=== PATIENT | male | born 1975 | race Caucasian/White ===

== ENCOUNTER 2020-04-04 08:09 | Emergency (ER) | payer MEDICAID ==
[2020-04-04 08:27] VITALS: O2SAT 100
[2020-04-04] MEDS ORDERED: DELTASONE 5 MG PO STA (08:37)
--- NOTE | 2020-04-04 08:40 | ERPHSYRPT ---
- History of Present Illness Time Seen by Provider: 04/04/20 08:30 Source: patient Exam Limitations: no limitations Patient Subjective Stated Complaint: rash Triage Nursing Assessment: pt to ED c/o rash to arms, neck, face and ears. states he left work Friday night and woke up Sat morning with rash to arms. since spread to face and neck. no swelling noted. no diff breathing or SOB. hx poison sumac and oak. no pain, itching tx with calamine lotion at home Physician History: Patient is a 44-year-old male presents to our ED with a pruritic rash to his face neck and arms. Symptoms started 3 days ago. 4 days ago patient was at work and exposed to either poison oak sumac or sm[place]a. Patient has been itching. Symptoms have been ongoing. No intraoral lesions. No difficulty breathing. No nausea or vomiting. No fevers. No concern for skin infection. Symptoms are constant. Symptoms are moderate in intensity. No specific worsening or improving factors. Patient is otherwise healthy. He voices no other complaints at this time. Timing/Duration: day(s) (3) Quality: itchy Severity: moderate Location: other (Face neck arms.) Modifying Factors: Improves With: calamine lotion (Patient applied calamine lotion with no significant improvement.) Associated Symptoms: No blisters, No change in skin texture, No difficulty breathing, No fever, No flushing, No headache, No hives, No jaundice, No malaise, No nasal congestion, No numbness, No pallor, No paresthesia, No petechiae, No sore throat, No swelling/mass/lumps, No tingling Allergies/Adverse Reactions: morphine Allergy (Verified 04/04/20 08:40) Hx Tetanus, Diphtheria Vaccination/Date Given: Yes Hx Influenza Vaccination/Date Given: Yes Hx Pneumococcal Vaccination/Date Given: No Immunizations Up to Date: Yes Travel Risk - International Travel Have you traveled outside of the country in past 3 weeks: No - Coronavirus Screening Are you exhibiting any of the following symptoms?: No Close contact with a COVID-19 positive Pt in past 14-21 Days: No - Review of Systems Constitutional: No Symptoms, No Fever, No Chills Eyes: No Symptoms Ears, Nose, & Throat: No Symptoms Respiratory: No Cough, No Dyspnea Cardiac: No Symptoms, No Chest Pain, No Edema, No Syncope Abdominal/Gastrointestinal: No Symptoms, No Abdominal Pain, No Nausea, No Vomiting, No Diarrhea Genitourinary Symptoms: No Symptoms, No Dysuria Musculoskeletal: No Symptoms, No Back Pain, No Neck Pain Skin: No Rash Neurological: No Symptoms, No Dizziness, No Focal Weakness, No Sensory Changes Psychological: No Symptoms Endocrine: No Symptoms Hematologic/Lymphatic: No Symptoms Immunological/Allergic: No Symptoms All Other Systems: Reviewed and Negative - Past Medical History Pertinent Past Medical History: No - Past Surgical History Past Surgical History: Yes Other Surgical History: unknown abd sx as child, "maybe hernia" - Social History Smoking Status: Current every day smoker How long have you smoked: years Exposure to second hand smoke: Yes Drug Use: none Patient Lives Alone: Yes - Nursing Vital Signs Nursing Vital Signs: Initial Vital Signs O2 Sat by Pulse Oximetry 100 04/04/20 08:14 Pain Scale Pain Intensity 0 - Physical Exam General Appearance: no apparent distress, alert Eye Exam: PERRL/EOMI, eyes nml inspection Ears, Nose, Throat Exam: normal ENT inspection, pharynx normal, moist mucous membranes Neck Exam: normal inspection, non-tender, supple, full range of motion Respiratory Exam: normal breath sounds, lungs clear, No respiratory distress Cardiovascular Exam: regular rate/rhythm, normal heart sounds Gastrointestinal/Abdomen Exam: soft, mass, No tenderness Back Exam: normal inspection, normal range of motion, No CVA tenderness, No vertebral tenderness Extremity Exam: normal inspection, normal range of motion, other (Patient has calamine lotion on upper extremities. Soft tissue intact. No cellulitis. No lymphangitis. Fine macular pruritic rash at areas of involvement on arms neck and face.) Neurologic Exam: alert, oriented x 3, cooperative, normal mood/affect, sensation nml, No motor deficits Skin Exam: normal color, warm, dry Lymphatic Exam: No adenopathy SpO2 Interpretation: normal SpO2: 100 O2 Delivery: Room Air - Course Nursing assessment & vital signs reviewed: Yes Ordered Tests: Medication Summary Discontinued Medications Generic Name Dose Route Start Last Admin Trade Name Freq PRN Reason Stop Dose Admin Prednisone 50 mg 04/04/20 08:37 Deltasone 5 Mg PO 04/04/20 08:38 DAILY STA - Progress Progress: improved Progress Note: 04/04/20 08:47 Patient reassessed. He feels well. Prednisone administered. Prescription for the same forwarded to patient's pharmacy. Patient agrees to follow-up with his primary care doctor within 48 hours for reevaluation. Patient advised [id number] Benadryl as needed as directed for pruritus. 04/04/20 08:47 Counseled pt/family regarding: diagnosis, need for follow-up - Departure Departure Disposition: Home Clinical Impression: Pruritic rash, Contact dermatitis Condition: Stable Critical Care Time: No Referrals: NELLY JAIME, [ACTIVE STAFF] - Instructions: Poison [place], Poison [place], Poison Sumac (DC) Additional Instructions: Discharge/Care Plan VERNA CORONA was seen on 04/04/20 in the Emergency Room. The patient was co unseled regarding Diagnosis,Lab results, Imaging studies, need for follow up and when to return to the Emergency Room. Prescriptions given: Discharge Note I have spoken with the patient and/or caregivers. I have explained the patient's condition, diagnosis and treatment plan based on the information available to me at this time. I have answered the patient's and/or caregiver's questions and addressed any concerns. The patient and/or caregivers have as good understanding of the patient's diagnosis, condition and treatment plan as can be expected at this point. The vital signs have been stable. The patient's condition is stable and appropriate for discharge from the emergency department. The patient will pursue further outpatient evaluation with the primary care physician or other designated or consulting physician as outlined in the discharge instructions. The patient and/or caregivers are agreeable to this plan of care and follow-up instructions have been explained in detail. The patient and/or caregivers have received these instruction. The patient/and or caregivers are aware that any significant change in condition or worsening of symptoms should prompt an immediate return to this or the closest emergency department or call 911. Prescriptions: Prednisone 10 mg [Deltasone 10 mg] 40 mg PO DAILY 3 Days #12 tablet
[2020-04-04] MEDS ORDERED: DELTASONE 20 MG ONE (08:43)
[2020-04-04 08:53] VITALS: BP 144/90; PULSE 45
[2020-04-04] MEDS ORDERED: DELTASONE 20 MG PO SCH (10:00)
== END 2020-04-04 09:05 | disposition home or self-care (01) ==
LOC: ED 08:09
DX: R21 Rash and other nonspecific skin eruption (principal); L25.9 Unspecified contact dermatitis, unspecified cause
CPT/HCPCS: 99283; A9270-GY

== ENCOUNTER 2022-12-18 12:41 | Emergency (ER) | payer OTHER ==
[2022-12-18 13:20] LABS: Appearance Clear (Clear); Bacteria None Seen /HPF (None Seen); Bilirubin Moderate (Negative); Blood Negative (Negative); Epithelial Cells None Seen /HPF (None Seen); Glucose, Urine Negative (Negative); Ketones Trace (Negative); Leukocyte Esterase Trace (Negative); Nitrite Negative (Negative); Ph 5.5 (4.6-8.0); Protein,Urine Dip Trace (Negative); RBC 0-2 /HPF (0-5); Specific Gravity >=1.030 (1.005-1.030); WBC 0-2 /HPF (0-5)
[2022-12-18 13:21] LABS: ADD URINE CULTURE? NO (NO)
[2022-12-18 13:23] LABS: Absolute Neutrophil Ct (ANC) 8.66 x10^3/uL (1.4-6.9); BASOPHIL % 0.5 % (0.0-0.4); Basophil (Absolute #) 0.05 x10^3/uL (0-0.4); Eosinophil % 0.2 % (0.00-5.0); Eosinophil (Absolute #) 0.02 x10^3/uL (0-0.5); Hematocrit 41.6 % (42-50); Hemoglobin 13.7 g/dL (12.5-18.0); IMMATURE GRAN # 0.04 x10^3u/L (0.00-0.03); IMMATURE GRAN % 0.4 % (0.00-0.4); Lymphocyte (Absolute #) 1.34 x10^3/uL (1.0-4.6); Lymphocytes % 12.3 % (24.0-44.0); Mean Cell Volume 92.2 fL (78-100); Mean Corpuscular Hemoglobin 30.4 pg (26-32); Mean Corpuscular Hgb Concent. 32.9 g/dL (32-36); Mean Platelet Volume 11.1 fL (7.5-11.0); Monocyte (Absolute #) 0.76 x10^3/uL (0.0-1.3); Neutrophil % 79.6 % (36.0-66.0); Platelet Count 188 x10^3/uL (150-450); Red Blood Count 4.51 x10^6/uL (4.1-5.6); Red Cell Distribution Width 12.6 % (11.5-14.0); White Blood Count 10.9 x10^3/uL (4.0-10.5)
[2022-12-18 13:32] LABS: Amphetamine,Urine NEGATIVE (NEGATIVE); Barbiturate,Urine NEGATIVE (NEGATIVE); Benzodiazepine,Urine NEGATIVE (NEGATIVE); Cocaine,Urine NEGATIVE (NEGATIVE); Methadone,Urine NEGATIVE (NEGATIVE); Opiate,Urine NEGATIVE (NEGATIVE); PCP,Urine NEGATIVE (NEGATIVE); THC,Urine POSITIVE (NEGATIVE)
[2022-12-18 13:38] LABS: ACETAMINOPHEN < 10 ug/ml (10-30); ALBUMIN 4.2 g/dL (3.5-5.0); ALKALINE PHOSPHATASE 50 U/L (38-126); ANION GAP 14.4 MEQ/L (5-15); BLOOD UREA NITROGEN 14 mg/dL (9-20); CHLORIDE 102 mmol/L (98-107); Calcium 8.9 mg/dL (8.4-10.2); Carbon Dioxide 22 mmol/L (22-30); Creatinine 1 0.86 mg/dL (0.66-1.25); EST GLOMERULAR FILTRATION RATE > 60.0 ML/MIN; ETHYL ALCOHOL < 10 mg/dL (0-10); Glucose 140 mg/dL (74-106); Potassium 3.7 mmol/L (3.5-5.1); SALICYLATE < 1.0 mg/dL (2-20); SGOT/AST 52 U/L (17-59); SGPT/ALT 33 U/L (0-50); SODIUM 135 mmol/L (137-145); Total Protein 7.3 g/dL (6.3-8.2)
[2022-12-18 13:58] LABS: INFLUENZA A NEGATIVE (NEGATIVE); INFLUENZA B NEGATIVE (NEGATIVE); RESPIRATORY SYNCTIAL VIRUS NEGATIVE (NEGATIVE); SARS-CoV-2 Xpert Express NEGATIVE (NEGATIVE)
--- NOTE | 2022-12-18 14:01 | ERPHSYRPT ---
- History of Present Illness Source: patient, other (Police) Exam Limitations: no limitations Patient Subjective Stated Complaint: Behavioral problems Triage Nursing Assessment: Patient ambulated back to ED handcuffed in custody of police. Patient's skin pink, warm and dry. Patient A+O X 3. Officer Yeny states patient c Patient states he is suicidal and states he would over dose on drugs. Patient states he has been thinking about his life and background which makes him sad. Patient currently living in [facility] on a cousins property. Patient denies pain or discomfort. Physician History: 47 yo WM brought into ER by police w suicidal ideations. Pt has an KAROLINA. He states that he is depressed/suicidal and wants to OD. Pt denies any ingestion at this time and will not say why he is depressed. He lives in a trailer by himself and is unemployed. Smokes less than 1ppd and occ drinks alcohol. Denies current drug use. Timing/Duration: today Severity of Symptoms-Max: moderate Severity of Symptoms-Current: moderate Suicidal thoughts: specific plan Associated Symptoms: depressed Allergies/Adverse Reactions: morphine Allergy (Verified 12/18/22 12:44) Home Medications: No Reportable Medications [No Reported Medications] 12/18/22 [History] Hx Tetanus, Diphtheria Vaccination/Date Given: Yes Hx Influenza Vaccination/Date Given: No Hx Pneumococcal Vaccination/Date Given: No Immunizations Up to Date: Yes Travel Risk - International Travel Have you traveled outside of the country in past 3 weeks: No - Coronavirus Screening Are you exhibiting any of the following symptoms?: No Close contact with a COVID-19 positive Pt in past 14-21 Days: No - Vaccine Status Have you recieved a Covid-19 vaccination: No - Past Medical History Pertinent Past Medical History: Yes Neurological History: No Pertinent History ENT History: No Pertinent History Cardiac History: No Pertinent History Respiratory History: No Pertinent History Endocrine Medical History: No Pertinent History Musculoskeletal History: No Pertinent History GI Medical History: No Pertinent History History: No Pertinent History Psycho-Social History: Anxiety, Depression Male Reproductive Disorders: No Pertinent History - Past Surgical History Past Surgical History: Yes Other Surgical History: unknown abd sx as child, "maybe hernia" - Social History Smoking Status: Current every day smoker How long have you smoked: years Exposure to second hand smoke: Yes Drug Use: marijuana Patient Lives Alone: Yes - Review of Systems Constitutional: No Symptoms Eyes: No Symptoms Ears, Nose, & Throat: No Symptoms Respiratory: No Symptoms Cardiac: No Symptoms Abdominal/Gastrointestinal: No Symptoms Genitourinary Symptoms: No Symptoms Musculoskeletal: No Symptoms Skin: No Symptoms Neurological: No Symptoms Endocrine: No Symptoms Hematologic/Lymphatic: No Symptoms Immunological/Allergic: No Symptoms - Nursing Vital Signs Nursing Vital Signs: Initial Vital Signs Temperature 98.9 F 12/18/22 12:45 Pulse Rate 99 H 12/18/22 12:45 Respiratory Rate 18 12/18/22 12:45 Blood Pressure 137/92 12/18/22 12:45 O2 Sat by Pulse Oximetry 96 12/18/22 12:45 Pain Scale Pain Intensity 0 Mildly hypertensive - Physical Exam General Appearance: no apparent distress Eyes, Ears, Nose, Throat Exam: normal ENT inspection, TMs normal, pharynx normal, moist mucous membranes Neck Exam: normal inspection, non-tender, supple, full range of motion, No Brudzinski, No Kernig's, No meningismus, No carotid bruit Respiratory Exam: normal breath sounds, lungs clear, airway intact, No chest tenderness, No respiratory distress Cardiovascular Exam: regular rate/rhythm, normal heart sounds, normal peripheral pulses, capillary refill <2 sec, No murmur Gastrointestinal/Abdominal Exam: soft, normal bowel sounds, No tenderness Extremities Exam: normal inspection, normal range of motion, No evidence of injury Peripheral Pulses: carotid (R): 2+, carotid (L): 2+ Current Suicidality: has suicide plan Neurological Exam: 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, 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 nml as tested, oriented x 3, depressed affect Appearance: disheveled Behavior/Eye Contact/Speech: alert & cooperative Thoughts/Hallucinations: normal thought pattern Skin Exam: normal color, warm, dry SpO2 Interpretation: normal SpO2: 96 O2 Delivery: Room Air - Course EKG Interpreted by Me: RATE (NSR/Rate 94/Normal QT-QTc/Peaked T waves/LVH/No acute St segment changes) Ordered Tests: Active Orders 24 hr Category Date Time Status EKG-ER Only STAT Care 12/18/22 13:07 Completed Tele-Health Consult ROUTINE Cons 12/18/22 16:59 Completed ACETAMINOPHEN Stat Lab 12/18/22 13:15 Completed CBC W DIFF Stat Lab 12/18/22 13:15 Completed CMP Stat Lab 12/18/22 13:15 Completed ETHYL ALCOHOL Stat Lab 12/18/22 13:15 Completed SALICYLATE Stat Lab 12/18/22 13:15 Completed UA W/RFX UR CULTURE Stat Lab 12/18/22 13:11 Completed Urine Triage Profile Stat Lab 12/18/22 13:11 Completed Lab/Rad Data: Laboratory Result Diagrams 12/18/22 13:15 12/18/22 13:15 Laboratory Results 12/18/22 12/18/22 12/18/22 Range/Units 13:15 13:15 13:15 WBC 10.9 H (4.0-10.5) x10^3/uL RBC 4.51 (4.1-5.6) x10^6/uL Hgb 13.7 (12.5-18.0) g/dL Hct 41.6 L (42-50) % MCV 92.2 (78-100) fL MCH 30.4 (26-32) pg MCHC 32.9 (32-36) g/dL RDW 12.6 (11.5-14.0) % Plt Count 188 (150-450) x10^3/uL MPV 11.1 H (7.5-11.0) fL Gran % 79.6 H (36.0-66.0) % Immature Gran % (Auto) 0.4 (0.00-0.4) % Nucleat RBC Rel Count 0.0 (0.00-0.1) % Eos # (Auto) 0.02 (0-0.5) x10^3/uL Immature Gran # (Auto) 0.04 H (0.00-0.03) x10^3u/L Absolute Lymphs (auto) 1.34 (1.0-4.6) x10^3/uL Absolute Monos (auto) 0.76 (0.0-1.3) x10^3/uL Absolute Nucleated RBC 0.00 (0.00-0.01) x10^3u/L Lymphocytes % 12.3 L (24.0-44.0) % Monocytes % 7.0 (0.0-12.0) % Eosinophils % 0.2 (0.00-5.0) % Basophils % 0.5 (0.0-0.4) % Absolute Granulocytes 8.66 H (1.4-6.9) x10^3/uL Basophils # 0.05 (0-0.4) x10^3/uL Sodium 135 L (137-145) mmol/L Potassium 3.7 (3.5-5.1) mmol/L Chloride 102 (98-107) mmol/L Carbon Dioxide 22 (22-30) mmol/L Anion Gap 14.4 (5-15) MEQ/L BUN 14 (9-20) mg/dL Creatinine 0.86 (0.66-1.25) mg/dL Estimated GFR > 60.0 ML/MIN Glucose 140 H (74-106) mg/dL Calcium 8.9 (8.4-10.2) mg/dL Total Bilirubin 1.10 (0.2-1.3) mg/dL AST 52 (17-59) U/L ALT 33 (0-50) U/L Alkaline Phosphatase 50 (38-126) U/L Serum Total Protein 7.3 (6.3-8.2) g/dL Albumin 4.2 (3.5-5.0) g/dL Urine Color (Yellow) Urine Appearance (Clear) Urine pH (4.6-8.0) Ur Specific [place] (1.005-1.030) Urine Protein (Negative) Urine Glucose (UA) (Negative) mg/dL Urine Ketones (Negative) Urine Blood (Negative) Urine Nitrite (Negative) Urine Bilirubin (Negative) Urine Urobilinogen (0.2) mg/dL Ur Leukocyte Esterase (Negative) U Hyaline Cast (Auto) (0-2) /LPF Urine Microscopic RBC (0-5) /HPF Urine Microscopic WBC (0-5) /HPF Ur Epithelial Cells (None Seen) /HPF Urine Bacteria (None Seen) /HPF Urine Culture Reflexed (NO) Salicylates < 1.0 L (2-20) mg/dL Urine Opiates Level (NEGATIVE) Ur Methadone (NEGATIVE) Acetaminophen < 10 L (10-30) ug/ml Urine Barbiturates (NEGATIVE) Ur Phencyclidine (PCP) (NEGATIVE) Urine Amphetamine (NEGATIVE) U Benzodiazepine Level (NEGATIVE) Urine Cocaine (NEGATIVE) Urine Marijuana (THC) (NEGATIVE) Ethyl Alcohol < 10 (0-10) mg/dL Influenza Type A Ag NEGATIVE (NEGATIVE) Influenza Type B Ag NEGATIVE (NEGATIVE) RSV (PCR) NEGATIVE (NEGATIVE) SARS-CoV-2 (PCR) NEGATIVE (NEGATIVE) 12/18/22 12/18/22 Range/Units 13:11 13:11 WBC (4.0-10.5) x10^3/uL RBC (4.1-5.6) x10^6/uL Hgb (12.5-18.0) g/dL Hct (42-50) % MCV (78-100) fL MCH (26-32) pg MCHC (32-36) g/dL RDW (11.5-14.0) % Plt Count (150-450) x10^3/uL MPV (7.5-11.0) fL Gran % (36.0-66.0) % Immature Gran % (Auto) (0.00-0.4) % Nucleat RBC Rel Count (0.00-0.1) % Eos # (Auto) (0-0.5) x10^3/uL Immature Gran # (Auto) (0.00-0.03) x10^3u/L Absolute Lymphs (auto) (1.0-4.6) x10^3/uL Absolute Monos (auto) (0.0-1.3) x10^3/uL Absolute Nucleated RBC (0.00-0.01) x10^3u/L Lymphocytes % (24.0-44.0) % Monocytes % (0.0-12.0) % Eosinophils % (0.00-5.0) % Basophils % (0.0-0.4) % Absolute Granulocytes (1.4-6.9) x10^3/uL Basophils # (0-0.4) x10^3/uL Sodium (137-145) mmol/L Potassium (3.5-5.1) mmol/L Chloride (98-107) mmol/L Carbon Dioxide (22-30) mmol/L Anion Gap (5-15) MEQ/L BUN (9-20) mg/dL Creatinine (0.66-1.25) mg/dL Estimated GFR ML/MIN Glucose (74-106) mg/dL Calcium (8.4-10.2) mg/dL Total Bilirubin (0.2-1.3) mg/dL AST (17-59) U/L ALT (0-50) U/L Alkaline Phosphatase (38-126) U/L Serum Total Protein (6.3-8.2) g/dL Albumin (3.5-5.0) g/dL Urine Color Dark Yellow (Yellow) Urine Appearance Clear (Clear) Urine pH 5.5 (4.6-8.0) Ur Specific [place] >=1.030 A (1.005-1.030) Urine Protein Trace A (Negative) Urine Glucose (UA) Negative (Negative) mg/dL Urine Ketones Trace A (Negative) Urine Blood Negative (Negative) Urine Nitrite Negative (Negative) Urine Bilirubin Moderate A (Negative) Urine Urobilinogen 1.0 A (0.2) mg/dL Ur Leukocyte Esterase Trace A (Negative) U Hyaline Cast (Auto) 3-5 A (0-2) /LPF Urine Microscopic RBC 0-2 (0-5) /HPF Urine Microscopic WBC 0-2 (0-5) /HPF Ur Epithelial Cells None Seen (None Seen) /HPF Urine Bacteria None Seen (None Seen) /HPF Urine Culture Reflexed NO (NO) Salicylates (2-20) mg/dL Urine Opiates Level NEGATIVE (NEGATIVE) Ur Methadone NEGATIVE (NEGATIVE) Acetaminophen (10-30) ug/ml Urine Barbiturates NEGATIVE (NEGATIVE) Ur Phencyclidine (PCP) NEGATIVE (NEGATIVE) Urine Amphetamine NEGATIVE (NEGATIVE) U Benzodiazepine Level NEGATIVE (NEGATIVE) Urine Cocaine NEGATIVE (NEGATIVE) Urine Marijuana (THC) POSITIVE (NEGATIVE) Ethyl Alcohol (0-10) mg/dL Influenza Type A Ag (NEGATIVE) Influenza Type B Ag (NEGATIVE) RSV (PCR) (NEGATIVE) SARS-CoV-2 (PCR) (NEGATIVE) - Progress Progress Note: 12/19/22 06:35 Nursing note and vital signs reviewed Additional history per police [facility] consulted on pt and agreed inpt treatment was appropriate KAROLINA papers signed by records management clerk, as pt is suicidal After lengthy placement process, pt transferred to [facility] Pt in stable condition during entire stay 12/19/22 06:39 Counseled pt/family regarding: lab results, diagnosis Medical Desision Making - Discussion of managment Care discussed with:: specialist Reviewed:: Test results Agreed on:: Treatment plan - Social Determinants of Health Pt's dx & treatment plan are significantly limited by SDOH: Unemployed - Risk of complications The pt has a high risk of morbidity or mortality based on: Drug therapy requiring intensive monitoring for toxicity - Departure Departure Disposition: Transfer Clinical Impression: Suicidal ideation Condition: Stable Critical Care Time: No Referrals: DOCTOR,NO FAMILY [Primary Care Provider] - Follow up/PCP as directed
[2022-12-19 02:32] VITALS: BP 103/64; PULSE 54
[2022-12-19 06:40] VITALS: O2SAT 96
== END 2022-12-19 01:09 ==
LOC: ED 12:41
DX: R45.851 Suicidal ideations (principal); Z20.828 Contact with and (suspected) exposure to other viral communicable diseases; Z72.0 Tobacco use
CPT/HCPCS: 0241U; 36415; 80053; 80143; 80179; 80307; 81001; 82077; 85025; 93005; 99284

== ENCOUNTER 2023-07-09 10:13 | Observation (INO) | payer OTHER ==
--- NOTE | 2023-07-09 10:16 | ERPHSYRPT ---
- History of Present Illness Time Seen by Provider: 07/09/23 10:16 Historian: patient Exam Limitations: no limitations Physician History: This is a thin 48-year-old white male patient who smokes daily and occasionally consumes alcohol and admits to consuming methamphetamines 3 days ago and presents with 2-month history of epigastric abdominal pain. He also states he h as not had a bowel movement since . Patient lives alone in a trailer. He has no family members with him. Patient stated that he walked this morning from [facility] to our facility. Patient denies being short of breath. He denies vomiting. Patient's room air oxygenation saturation level is 98%. Patient's heart rate on the monitor is 170 bpm. The twelve-lead EKG shows supraventricular tachycardia. Patient states he does not feel palpitations or rapid heart rate. Patient denies any prior intra-abdominal surgeries. Patient is allergic to morphine. Patient does not take any medications chronically. Patient has no family doctor. Patient's systolic blood pressure is in the 130s and his diastolic blood pressure is 89. Activities at Onset: other (Walking) Quality: aching Abdominal Pain Onset Location: epigastric Pain Radiation: no radiation Severity of Pain-Max: mild (To moderate) Severity of Pain-Current: mild (Moderate) Modifying Factors: Improves With: walking, other (Constipation) Associated Symptoms: other (Constipation) Previous symptoms: no prior history Allergies/Adverse Reactions: morphine Allergy (Verified 07/09/23 10:21) Home Medications: Sertraline HCl 100 mg PO DAILY 07/09/23 [History] Hx Tetanus, Diphtheria Vaccination/Date Given: Yes Hx Influenza Vaccination/Date Given: No Hx Pneumococcal Vaccination/Date Given: No Travel Risk - International Travel Have you traveled outside of the country in past 3 weeks: No - Coronavirus Screening Are you exhibiting any of the following symptoms?: No Close contact with a COVID-19 positive Pt in past 14-21 Days: No - Vaccine Status Have you recieved a Covid-19 vaccination: No - Review of Systems Constitutional: No Symptoms Eyes: No Symptoms Ears, Nose, & Throat: No Symptoms Respiratory: No Symptoms Cardiac: No Symptoms Abdominal/Gastrointestinal: Abdominal Pain (Epigastrium), Constipation Genitourinary Symptoms: No Symptoms Musculoskeletal: No Symptoms Skin: No Symptoms Neurological: No Symptoms Psychological: No Symptoms Endocrine: No Symptoms - Past Medical History Pertinent Past Medical History: Yes Neurological History: No Pertinent History ENT History: No Pertinent History Cardiac History: No Pertinent History Respiratory History: No Pertinent History Endocrine Medical History: No Pertinent History Musculoskeletal History: No Pertinent History GI Medical History: No Pertinent History History: No Pertinent History Psycho-Social History: Anxiety, Depression Male Reproductive Disorders: No Pertinent History - Past Surgical History Past Surgical History: Yes Other Surgical History: unknown abd sx as child, "maybe hernia" - Social History Smoking Status: Current every day smoker How long have you smoked: years Exposure to second hand smoke: Yes Drug Use: marijuana Patient Lives Alone: Yes - Nursing Vital Signs Nursing Vital Signs: Initial Vital Signs Temperature 97.3 F 07/09/23 10:24 Pulse Rate 168 H 07/09/23 10:24 Respiratory Rate 22 07/09/23 10:24 Blood Pressure 145/101 07/09/23 10:24 O2 Sat by Pulse Oximetry 99 07/09/23 10:24 Pain Scale Pain Intensity 8 - Physical Exam General Appearance: no apparent distress, alert, thin Eye Exam: PERRL/EOMI, eyes nml inspection Ears, Nose, Throat Exam: normal ENT inspection, moist mucous membranes Neck Exam: normal inspection, non-tender, supple, full range of motion Respiratory Exam: normal breath sounds, lungs clear, airway intact, No chest tenderness, No respiratory distress Cardiovascular Exam: tachycardia Gastrointestinal/Abdomen Exam: soft, normal bowel sounds, tenderness (In the epigastrium), guarding (Epigastrium), No rebound Rectal Exam: not done Back Exam: normal inspection, normal range of motion, No CVA tenderness, No vertebral tenderness Extremity Exam: normal inspection, normal range of motion, pelvis stable Neurologic Exam: alert, oriented x 3, cooperative, 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 No acute ischemic changes on today's twelve-lead EKG.) Ordered Tests: Active Orders 24 hr Category Date Time Status Clean Catch Urine Specimen STAT Care 07/09/23 10:52 Active EKG-ER Only STAT Care 07/09/23 10:52 Active ABDOMEN AND PELVIS W/0 CONTRAS [CT] Stat Exams 07/09/23 10:57 Completed CHEST WITH CONTRAST [CT] Stat Exams 07/09/23 11:26 Completed CBC W DIFF Stat Lab 07/09/23 10:40 Completed CMP Stat Lab 07/09/23 10:40 Completed D-DIMER QUANTITATIVE Stat Lab 07/09/23 10:40 Completed ETHYL ALCOHOL Stat Lab 07/09/23 10:40 Completed MAGNESIUM Stat Lab 07/09/23 10:40 Completed NT PRO BNPII Stat Lab 07/09/23 10:40 Completed TROPONIN Q4H Lab 07/09/23 10:40 Completed TROPONIN Q4H Lab 07/09/23 15:00 Ordered TROPONIN Q4H Lab 07/09/23 19:00 Ordered UA W/RFX UR CULTURE Stat Lab 07/09/23 10:59 Completed Urine Triage Profile Stat Lab 07/09/23 10:58 Completed Transfer Order Routine Transfer 07/09/23 Ordered Medication Summary Discontinued Medications Generic Name Dose Route Start Last Admin Trade Name Freq PRN Reason Stop Dose Admin Diltiazem HCl Confirm 07/09/23 10:37 Diltiazem Hcl Iv 5 Mg/Ml Vial Administered 07/09/23 10:38 Dose 50 mg IV .STK-MED ONE Diltiazem HCl 15 mg 07/09/23 10:43 07/09/23 10:45 Diltiazem Hcl Iv 5 Mg/Ml Vial IV 07/09/23 10:44 15 mg STAT ONE Administration Diltiazem HCl 10 mg 07/09/23 10:47 07/09/23 10:48 Diltiazem Hcl Iv 5 Mg/Ml Vial IV 07/09/23 10:48 10 mg STAT ONE Administration Sodium Chloride Confirm 07/09/23 10:38 Sodium Chloride 0.9% 1000 Ml Administered 07/09/23 10:39 Dose 1,000 mls @ ud .ROUTE .STK-MED ONE Sodium Chloride 1,000 mls @ 999 mls/hr 07/09/23 10:44 07/09/23 11:52 Sodium Chloride 0.9% 1000 Ml IV 07/09/23 11:44 Infused .Q1H1M STA Infusion Sodium Chloride 1,000 mls @ 999 mls/hr 07/09/23 12:06 07/09/23 13:25 Sodium Chloride 0.9% 1000 Ml IV 07/09/23 13:06 Infused .Q1H1M STA Infusion Sodium Chloride Confirm 07/09/23 12:23 Sodium Chloride 0.9% 1000 Ml Administered 07/09/23 12:24 Dose 1,000 mls @ ud .ROUTE .STK-MED ONE Lorazepam 0.5 mg 07/09/23 10:56 07/09/23 11:16 Lorazepam 2 Mg/1 Ml 2 Mg Vial IV 07/09/23 10:57 0.5 mg STAT ONE Administration Lorazepam Confirm 07/09/23 11:12 Lorazepam 2 Mg/1 Ml 2 Mg Vial Administered 07/09/23 11:13 Dose 2 mg .ROUTE .STK-MED ONE Lab/Rad Data: Laboratory Result Diagrams 07/09/23 10:40 07/09/23 10:40 Laboratory Results 07/09/23 07/09/23 07/09/23 Range/Units 10:59 10:58 10:40 WBC (4.0-10.5) x10^3/uL RBC (4.1-5.6) x10^6/uL Hgb (12.5-18.0) g/dL Hct (42-50) % MCV (78-100) fL MCH (26-32) pg MCHC (32-36) g/dL RDW (11.5-14.0) % Plt Count (150-450) x10^3/uL MPV (7.5-11.0) fL Gran % (36.0-66.0) % Immature Gran % (Auto) (0.00-0.4) % Nucleat RBC Rel Count (0.00-0.1) % Eos # (Auto) (0-0.5) x10^3/uL Immature Gran # (Auto) (0.00-0.03) x10^3u/L Absolute Lymphs (auto) (1.0-4.6) x10^3/uL Absolute Monos (auto) (0.0-1.3) x10^3/uL Absolute Nucleated RBC (0.00-0.01) x10^3u/L Lymphocytes % (24.0-44.0) % Monocytes % (0.0-12.0) % Eosinophils % (0.00-5.0) % Basophils % (0.0-0.4) % Absolute Granulocytes (1.4-6.9) x10^3/uL Basophils # (0-0.4) x10^3/uL D-Dimer (0.0-0.50) mg/L Sodium (137-145) mmol/L Potassium (3.5-5.1) mmol/L Chloride (98-107) mmol/L Carbon Dioxide (22-30) mmol/L Anion Gap (5-15) MEQ/L BUN (9-20) mg/dL Creatinine (0.66-1.25) mg/dL Estimated GFR ML/MIN Glucose (74-106) mg/dL Calcium (8.4-10.2) mg/dL Magnesium (1.6-2.3) mg/dL Total Bilirubin (0.2-1.3) mg/dL AST (17-59) U/L ALT (0-50) U/L Alkaline Phosphatase (38-126) U/L Troponin I < 0.012 (0.000-0.034) ng/mL NT-Pro-B Natriuret Pep (<300) pg/mL Serum Total Protein (6.3-8.2) g/dL Albumin (3.5-5.0) g/dL Urine Color Dark Yellow (Yellow) Urine Appearance Clear (Clear) Urine pH 6.0 (4.6-8.0) Ur Specific [place] 1.015 (1.005-1.030) Urine Protein 30 (Negative) Urine Glucose (UA) Negative (Negative) mg/dL Urine Ketones Trace A (Negative) Urine Blood Negative (Negative) Urine Nitrite Negative (Negative) Urine Bilirubin Negative (Negative) Urine Urobilinogen 1.0 A (0.2) mg/dL Ur Leukocyte Esterase Negative (Negative) U Hyaline Cast (Auto) 0-2 (0-2) /LPF Urine Microscopic RBC 0-2 (0-5) /HPF Urine Microscopic WBC 3-5 (0-5) /HPF Ur Epithelial Cells Few (None Seen) /HPF Urine Bacteria None Seen (None Seen) /HPF Urine Culture Reflexed NO (NO) Urine Opiates Level NEGATIVE (NEGATIVE) Ur Methadone NEGATIVE (NEGATIVE) Urine Barbiturates NEGATIVE (NEGATIVE) Ur Phencyclidine (PCP) NEGATIVE (NEGATIVE) Urine Amphetamine POSITIVE A (NEGATIVE) U Benzodiazepine Level NEGATIVE (NEGATIVE) Urine Cocaine NEGATIVE (NEGATIVE) Urine Marijuana (THC) POSITIVE A (NEGATIVE) Ethyl Alcohol (0-10) mg/dL 07/09/23 07/09/23 07/09/23 Range/Units 10:40 10:40 10:40 WBC 20.8 H (4.0-10.5) x10^3/uL RBC 4.68 (4.1-5.6) x10^6/uL Hgb 14.4 (12.5-18.0) g/dL Hct 42.7 (42-50) % MCV 91.2 (78-100) fL MCH 30.8 (26-32) pg MCHC 33.7 (32-36) g/dL RDW 12.4 (11.5-14.0) % Plt Count 339 (150-450) x10^3/uL MPV 11.7 H (7.5-11.0) fL Gran % 83.7 H (36.0-66.0) % Immature Gran % (Auto) 0.6 H (0.00-0.4) % Nucleat RBC Rel Count 0.0 (0.00-0.1) % Eos # (Auto) 0.02 (0-0.5) x10^3/uL Immature Gran # (Auto) 0.13 H (0.00-0.03) x10^3u/L Absolute Lymphs (auto) 1.61 (1.0-4.6) x10^3/uL Absolute Monos (auto) 1.50 H (0.0-1.3) x10^3/uL Absolute Nucleated RBC 0.00 (0.00-0.01) x10^3u/L Lymphocytes % 7.8 L (24.0-44.0) % Monocytes % 7.2 (0.0-12.0) % Eosinophils % 0.1 (0.00-5.0) % Basophils % 0.6 (0.0-0.4) % Absolute Granulocytes 17.37 H (1.4-6.9) x10^3/uL Basophils # 0.12 (0-0.4) x10^3/uL D-Dimer 0.94 H* (0.0-0.50) mg/L Sodium 135 L (137-145) mmol/L Potassium 4.4 (3.5-5.1) mmol/L Chloride 100 (98-107) mmol/L Carbon Dioxide 18 L (22-30) mmol/L Anion Gap 21.4 H (5-15) MEQ/L BUN 13 (9-20) mg/dL Creatinine 1.35 H (0.66-1.25) mg/dL Estimated GFR 64.0 ML/MIN Glucose 72 L (74-106) mg/dL Calcium 9.8 (8.4-10.2) mg/dL Magnesium 1.7 (1.6-2.3) mg/dL Total Bilirubin 1.20 (0.2-1.3) mg/dL AST 38 (17-59) U/L ALT 30 (0-50) U/L Alkaline Phosphatase 71 (38-126) U/L Troponin I (0.000-0.034) ng/mL NT-Pro-B Natriuret Pep 201 (<300) pg/mL Serum Total Protein 7.6 (6.3-8.2) g/dL Albumin 4.6 (3.5-5.0) g/dL Urine Color (Yellow) Urine Appearance (Clear) Urine pH (4.6-8.0) Ur Specific [place] (1.005-1.030) Urine Protein (Negative) Urine Glucose (UA) (Negative) mg/dL Urine Ketones (Negative) Urine Blood (Negative) Urine Nitrite (Negative) Urine Bilirubin (Negative) Urine Urobilinogen (0.2) mg/dL Ur Leukocyte Esterase (Negative) U Hyaline Cast (Auto) (0-2) /LPF Urine Microscopic RBC (0-5) /HPF Urine Microscopic WBC (0-5) /HPF Ur Epithelial Cells (None Seen) /HPF Urine Bacteria (None Seen) /HPF Urine Culture Reflexed (NO) Urine Opiates Level (NEGATIVE) Ur Methadone (NEGATIVE) Urine Barbiturates (NEGATIVE) Ur Phencyclidine (PCP) (NEGATIVE) Urine Amphetamine (NEGATIVE) U Benzodiazepine Level (NEGATIVE) Urine Cocaine (NEGATIVE) Urine Marijuana (THC) (NEGATIVE) Ethyl Alcohol < 10 (0-10) mg/dL - Progress Progress: improved, re-examined Progress Note: 07/09/23 11:07 This patient's medical issue is 1 of high complexity. Level complex in the workup performed is based on review the patient's past medical history, review of patient's medication list, review the patient's drug allergy list, history present illness and physical findings on examination. The workup in this patient includes placement of intravenous line, infusion of 1 L normal saline solution, infusion of 15 mg of intravenous Cardizem followed by infusion of 10 mg of intravenous Cardizem. We ordered a CBC, CMP, magnesium level, D-dimer, BNP, troponin level, initial twelve-lead EKG followed by a second twelve-lead EKG after infusion of the Cardizem boluses x 2. We also ordered a urine drug screen, blood alcohol level and urinalysis. Repeat twelve-lead EKG after a total of 25 mg intravenous Cardizem bolus shows a heart rate of 76. Patient is in normal sinus rhythm. There is no acute ischemic changes on today's repeat twelve-lead EKG. There is normal axis, normal intervals, QRS. 07/09/23 13:20 I interpreted the laboratory data workup in this patient. The patient has leukocytosis. He also had an elevated D-dimer level. With onset of supraventr icular tachycardia and elevated D-dimer, I ordered a CT scan of the chest with contrast. Patient was also having epigastric pain and therefore I ordered a CT scan of the abdomen pelvis without contrast. The CT scan of the chest with contrast was interpreted by the radiologist. There is no definite pulmonary embolus. There is no definite consolidative lesions. There is no pleural effusion. There is no pericardial effusion. CT scan of the abdomen pelvis without contrast shows subtle thickening of the antrum and pylorus of the stomach. There is a contracted gallbladder with hyperdense calculus. Radiologist recommends further assessment with the gallbladder ultrasound. 07/09/23 13:30 I discussed the patient history, patient presenting complaint, laboratory data results and results of the patient response to our intervention as well as twelve-lead EKG findings and radiographic study findings with Dr. Collins our telehospitalist on at this time. He agrees with placing this patient in observation under telemetry. We will also obtain general surgery consultation for possible endoscopy and order a gallbladder ultrasound as an inpatient. Counseled pt/family regarding: lab results, diagnosis Medical Desision Making - Diagnostic Testing Diagnostic test were ordered, analyzed, and reviewed by me: Yes Radiological Interpretation: Reviewed by me, Teleradiologist Report - Risk of complications The pt has a high risk of morbidity or mortality based on: Decision regarding hospitilization or escalation of hosp level of care - Departure Departure Disposition: Observation Clinical Impression: Abdominal pain, Supraventricular tachycardia, Gallstones, Elevated d-dimer, Gastric wall thickening, Methamphetamine abuse, Marijuana abuse Condition: Stable Critical Care Time: Yes Critical Care Time(excluding separately billable procedures): Critical 30-74 mins (40 minutes) Referrals: DOCTOR,NO FAMILY [Primary Care Provider] - Follow up/PCP as directed
[2023-07-09] MEDS ORDERED: Cardizem IV 50 MG/10 ML IV ONE ×3 (10:37→10:47)
[2023-07-09] MEDS ORDERED: Sodium Chloride 0.9% 1000 ML 1,000 ML ONE ×2 (10:38→12:23)
[2023-07-09] MEDS ORDERED: Sodium Chloride 0.9% 1000 ML 1,000 ML IV STA ×2 (10:44→12:06)
[2023-07-09] MEDS ORDERED: Ativan 2 MG/1 ML VIAL IV ONE (10:56)
[2023-07-09 11:02] LABS: Absolute Neutrophil Ct (ANC) 17.37 x10^3/uL (1.4-6.9); BASOPHIL % 0.6 % (0.0-0.4); Basophil (Absolute #) 0.12 x10^3/uL (0-0.4); Eosinophil % 0.1 % (0.00-5.0); Eosinophil (Absolute #) 0.02 x10^3/uL (0-0.5); Hematocrit 42.7 % (42-50); Hemoglobin 14.4 g/dL (12.5-18.0); IMMATURE GRAN # 0.13 x10^3u/L (0.00-0.03); IMMATURE GRAN % 0.6 % (0.00-0.4); Lymphocyte (Absolute #) 1.61 x10^3/uL (1.0-4.6); Lymphocytes % 7.8 % (24.0-44.0); Mean Cell Volume 91.2 fL (78-100); Mean Corpuscular Hemoglobin 30.8 pg (26-32); Mean Corpuscular Hgb Concent. 33.7 g/dL (32-36); Mean Platelet Volume 11.7 fL (7.5-11.0); Monocytes % 7.2 % (0.0-12.0); Neutrophil % 83.7 % (36.0-66.0); Platelet Count 339 x10^3/uL (150-450); Red Blood Count 4.68 x10^6/uL (4.1-5.6); Red Cell Distribution Width 12.4 % (11.5-14.0); White Blood Count 20.8 x10^3/uL (4.0-10.5)
[2023-07-09] MEDS ORDERED: Ativan 2 MG/1 ML VIAL ONE (11:12)
[2023-07-09 11:18] LABS: ETHYL ALCOHOL < 10 mg/dL (0-10)
[2023-07-09 11:19] LABS: ALBUMIN 4.6 g/dL (3.5-5.0); ALKALINE PHOSPHATASE 71 U/L (38-126); ANION GAP 21.4 MEQ/L (5-15); BLOOD UREA NITROGEN 13 mg/dL (9-20); CHLORIDE 100 mmol/L (98-107); Calcium 9.8 mg/dL (8.4-10.2); Carbon Dioxide 18 mmol/L (22-30); Creatinine 1 1.35 mg/dL (0.66-1.25); Glucose 72 mg/dL (74-106); MAGNESIUM 1.7 mg/dL (1.6-2.3); NT PRO BNPII 201 pg/mL (<300); Potassium 4.4 mmol/L (3.5-5.1); SGOT/AST 38 U/L (17-59); SGPT/ALT 30 U/L (0-50); SODIUM 135 mmol/L (137-145); Total Protein 7.6 g/dL (6.3-8.2)
[2023-07-09 11:22] LABS: Barbiturate,Urine NEGATIVE (NEGATIVE); Benzodiazepine,Urine NEGATIVE (NEGATIVE); Cocaine,Urine NEGATIVE (NEGATIVE); Methadone,Urine NEGATIVE (NEGATIVE); Opiate,Urine NEGATIVE (NEGATIVE); PCP,Urine NEGATIVE (NEGATIVE); THC,Urine POSITIVE (NEGATIVE)
[2023-07-09 11:33] LABS: ADD URINE CULTURE? NO (NO); Appearance Clear (Clear); Bacteria None Seen /HPF (None Seen); Bilirubin Negative (Negative); Blood Negative (Negative); Epithelial Cells Few /HPF (None Seen); Glucose, Urine Negative (Negative); Hyaline Casts 0-2 /LPF (0-2); Ketones Trace (Negative); Leukocyte Esterase Negative (Negative); Nitrite Negative (Negative); Protein,Urine Dip 30 (Negative); RBC 0-2 /HPF (0-5); Specific Gravity 1.015 (1.005-1.030)
[2023-07-09 12:09] LABS: Amphetamine,Urine POSITIVE (NEGATIVE)
--- NOTE | 2023-07-09 13:15 | XRAY ---
CLINICAL HISTORY:SVT; D-dimer up; epigastric pain COMPARISON:None TECHNIQUE:Contiguous axial CT images of the chest were acquired with the administration of intravenous contrast with CT PA protocol. Coronal and sagittal reconstructions were obtained. FINDINGS: The main pulmonary artery and its major branches and segmental branches are normally opacified with contrast without evidence of filling defect to suggest pulmonary embolism. The scanned pulmonary parenchyma shows no definite consolidative lesions. No free or encysted pleural effusion. Heart size is normal, and there is no pericardial effusion. No pathologically enlarged mediastinal, hilar or axillary lymph node identified. There is no definite mass lesion in the chest wall. Scanned upper abdomen is unremarkable. Degenerative changes are noted in the visualized cervicothoracic spine. IMPRESSION: No evidence of pulmonary embolism noted Electronically Signed by: Kelvin Rader MD. (07/09/2023 13:10:55 EST)
--- NOTE | 2023-07-09 13:19 | XRAY ---
CLINICAL HISTORY:Epigastric pain; constipation COMPARISON:None TECHNIQUE:CT scan of the abdomen was performed without IV contrast. Bowel loops are opacified by prior administration of oral contrast. FINDINGS: The liver is normal in size and shape and with regular margins. No focal or diffuse parenchymal abnormality. No hepatic mass is identified. The portal vein, intrahepatic biliary radicals, and the bile ducts are normal. Gall bladder is contracted with hyperdense calculus is noted in the lumen measuring 7 mm. Common bile appears normal. Pancreas appears normal. No peripancreatic fat stranding, pancreatic pseudocyst or peripancreatic fluid collection. Few calcified granulomas are noted in the splenic parenchyma. Both adrenal glands are unremarkable. Both kidneys are normal in size, shape, and orientation. No calculi, cyst mass or hydronephrosis was seen on either side. Both ureters and urinary bladder appear normal. Subtle thickening is noted in the pylorus and antrum of the stomach. The caecum and ileocecal junction appear normal. The appendix is normally visualized with normal intraluminal air. Large bowel loops appear normal without evidence of bowel obstruction. The sigmoid and rectum appear normal. No evidence of significant enlargement of the mesenteric or retroperitoneal lymph nodes. Degenerative changes are noted in the visualized spine. Urinary bladder and prostate appear unremarkable. IMPRESSION: Subtle thickening of the antrum and pylorus of the stomach needs further assessment with endoscopy. Contracted gallbladder with hyperdense calculus needs further assessment with ultrasound. Electronically Signed by: Kelvin Rader MD. (07/09/2023 13:14:44 EST)
[2023-07-09] MEDS ORDERED: Zofran 4 MG/2 ML VIAL IV PRN (13:50)
[2023-07-09] MEDS ORDERED: TYLENOL 325 MG PO PRN (13:50)
--- NOTE | 2023-07-09 14:07 | PCM.HP ---
History of Present Illness - Chief Complaint Chief Complaint: Supraventricular tachycardia Date: 07/09/23 History of Present Illness: is a 48 year old male with a pmhx of anxiety, depression, current daily smoker, and methamphetamine abuse presented to ED 07/09/23 with complaints of diffuse abdominal pain with associated poor appetite. Onset was about 2 weeks ago. Pain is crampy/aching in characteristic and mostly occurs when he is bending over. Pain is moderate in severity. Patient reports he has not had a bowel movement for three days and does conway with constipation. He feels like his clothes are loose but is unsure if he has lost weight recently. He additionally endorses poor sleep, shortness of breath and a dry cough with the same onset of about two weeks ago. He denies cp, palpitations, dizziness, nausea, vomiting, diarrhea, or fever/chills. He is an everyday smoker of 1 PPD for the past 30 years. He has had recent illicit drug use of THC and methamphetamine (3 days ago). Upon arrival to ED patient was tachycardic with HR at 168, hypertensive, with spo2 @ 99% on RA. CT of the abdomen and pelvis showing thickening of the antrium and pylorous of the stomach and a contracted GB with hyperdenise calculus. CT of the chest negative for PE. EKG per ER interpretation initially showing RATE (167), SVT, NORMAL AXIS, Other (Unifocal. No acute ischemic changes on today's twelve-lead EKG.) Patient received infusion of 1 L normal saline solution, infusion of 15 mg of intravenous Cardizem followed by infusion of 10 mg of intravenous Cardizem.Repeat twelve-lead EKG per ER physician's interpretation after a total of 25 mg intravenous Cardizem bolus shows a heart rate of 76. Patient is in normal sinus rhythm. There is no acute ischemic changes on today's repeat twelve-lead EKG. There is normal axis, normal intervals, QRS. Laboratory findings remarkable for leukocytosis with WBC at 20.8, DDimer elevated at 0.94, Co2 low at 18, and GAP at 21.4. UDS positive for amphetamines and THC. GB US ordered and pending. - Review of Systems Constitutional: No Symptoms Eyes: No Symptoms Ears, Nose, & Throat: No Symptoms Respiratory: Cough, Short Of Breath Cardiac: No Symptoms Abdominal/Gastrointestinal: Abdominal Pain, Appetite Changes Genitourinary Symptoms: No Symptoms Musculoskeletal: No Symptoms Skin: No Symptoms Neurological: No Symptoms Psychological: Drug Abuse Endocrine: No Symptoms Hematologic/Lymphatic: No Symptoms Immunological/Allergic: No Symptoms Medications & Allergies Home Medications: Home Medication List Sertraline HCl 100 mg PO HS 07/09/23 [History Confirmed 07/09/23] Allergies/Adverse Reactions: Allergies Allergy/AdvReac Type Severity Reaction Status Date / Time morphine Allergy Verified 07/09/23 13:54 - Past Medical History Past Medical History: Yes Neurological History: No Pertinent History ENT History: No Pertinent History Cardiac History: No Pertinent History Respiratory History: No Pertinent History Endocrine Medical History: No Pertinent History Musculoskelatal History: No Pertinent History GI Medical History: No Pertinent History History: No Pertinent History Pyscho-Social History: Anxiety, Depression Male Reproductive Disorders: No Pertinent History - Past Surgical History Past Surgical History: Yes Other Surgical History: unknown abd sx as child, "maybe hernia" - Social History Smoking Status: Current every day smoker How long have you smoked: years Exposure to second hand smoke: Yes Alcohol: Rarely Drug Use: marijuana, methamphetamines - Physical Exam Vital Signs: Vital Signs - 24 hr Temp Pulse Resp BP BP Pulse Ox 07/09/23 11:50 65 22 99/77 96 07/09/23 11:40 75 20 116/71 07/09/23 11:30 72 23 118/72 97 07/09/23 11:20 72 21 131/82 95 07/09/23 11:10 72 21 130/83 95 07/09/23 11:00 84 21 136/82 98 07/09/23 10:50 98 H 26 H 118/85 94 L 07/09/23 10:49 97 07/09/23 10:44 153 H 15 122/89 96 07/09/23 10:24 97.3 F 168 H 22 145/101 99 General Appearance: no apparent distress Neurologic Exam: alert, oriented x 3, cooperative Eye Exam: PERRL/EOMI Ears, Nose, Throat Exam: dry mucous membranes Neck Exam: normal inspection Respiratory Exam: normal breath sounds, lungs clear Cardiovascular Exam: regular rate/rhythm, normal heart sounds Gastrointestinal/Abdomen Exam: soft, normal bowel sounds Rectal Exam: deferred Back Exam: normal inspection Extremity Exam: normal inspection Skin Exam: normal color Results - Labs Lab/Micro Results: Lab Results-Last 24 Hours 07/09/23 07/09/23 07/09/23 Range/Units 10:40 10:40 10:40 WBC 20.8 H (4.0-10.5) x10^3/uL RBC 4.68 (4.1-5.6) x10^6/uL Hgb 14.4 (12.5-18.0) g/dL Hct 42.7 (42-50) % MCV 91.2 (78-100) fL MCH 30.8 (26-32) pg MCHC 33.7 (32-36) g/dL RDW 12.4 (11.5-14.0) % Plt Count 339 (150-450) x10^3/uL MPV 11.7 H (7.5-11.0) fL Gran % 83.7 H (36.0-66.0) % Immature Gran % (Auto) 0.6 H (0.00-0.4) % Nucleat RBC Rel Count 0.0 (0.00-0.1) % Eos # (Auto) 0.02 (0-0.5) x10^3/uL Immature Gran # (Auto) 0.13 H (0.00-0.03) x10^3u/L Absolute Lymphs (auto) 1.61 (1.0-4.6) x10^3/uL Absolute Monos (auto) 1.50 H (0.0-1.3) x10^3/uL Absolute Nucleated RBC 0.00 (0.00-0.01) x10^3u/L Lymphocytes % 7.8 L (24.0-44.0) % Monocytes % 7.2 (0.0-12.0) % Eosinophils % 0.1 (0.00-5.0) % Basophils % 0.6 (0.0-0.4) % Absolute Granulocytes 17.37 H (1.4-6.9) x10^3/uL Basophils # 0.12 (0-0.4) x10^3/uL D-Dimer 0.94 H* (0.0-0.50) mg/L Sodium 135 L (137-145) mmol/L Potassium 4.4 (3.5-5.1) mmol/L Chloride 100 (98-107) mmol/L Carbon Dioxide 18 L (22-30) mmol/L Anion Gap 21.4 H (5-15) MEQ/L BUN 13 (9-20) mg/dL Creatinine 1.35 H (0.66-1.25) mg/dL Estimated GFR 64.0 ML/MIN Glucose 72 L (74-106) mg/dL Calcium 9.8 (8.4-10.2) mg/dL Magnesium 1.7 (1.6-2.3) mg/dL Total Bilirubin 1.20 (0.2-1.3) mg/dL AST 38 (17-59) U/L ALT 30 (0-50) U/L Alkaline Phosphatase 71 (38-126) U/L Troponin I (0.000-0.034) ng/mL NT-Pro-B Natriuret Pep 201 (<300) pg/mL Serum Total Protein 7.6 (6.3-8.2) g/dL Albumin 4.6 (3.5-5.0) g/dL Urine Color (Yellow) Urine Appearance (Clear) Urine pH (4.6-8.0) Ur Specific Mina (1.005-1.030) Urine Protein (Negative) Urine Glucose (UA) (Negative) mg/dL Urine Ketones (Negative) Urine Blood (Negative) Urine Nitrite (Negative) Urine Bilirubin (Negative) Urine Urobilinogen (0.2) mg/dL Ur Leukocyte Esterase (Negative) U Hyaline Cast (Auto) (0-2) /LPF Urine Microscopic RBC (0-5) /HPF Urine Microscopic WBC (0-5) /HPF Ur Epithelial Cells (None Seen) /HPF Urine Bacteria (None Seen) /HPF Urine Culture Reflexed (NO) Urine Opiates Level (NEGATIVE) Ur Methadone (NEGATIVE) Urine Barbiturates (NEGATIVE) Ur Phencyclidine (PCP) (NEGATIVE) Urine Amphetamine (NEGATIVE) U Benzodiazepine Level (NEGATIVE) Urine Cocaine (NEGATIVE) Urine Marijuana (THC) (NEGATIVE) Ethyl Alcohol < 10 (0-10) mg/dL 07/09/23 07/09/23 07/09/23 Range/Units 10:40 10:58 10:59 WBC (4.0-10.5) x10^3/uL RBC (4.1-5.6) x10^6/uL Hgb (12.5-18.0) g/dL Hct (42-50) % MCV (78-100) fL MCH (26-32) pg MCHC (32-36) g/dL RDW (11.5-14.0) % Plt Count (150-450) x10^3/uL MPV (7.5-11.0) fL Gran % (36.0-66.0) % Immature Gran % (Auto) (0.00-0.4) % Nucleat RBC Rel Count (0.00-0.1) % Eos # (Auto) (0-0.5) x10^3/uL Immature Gran # (Auto) (0.00-0.03) x10^3u/L Absolute Lymphs (auto) (1.0-4.6) x10^3/uL Absolute Monos (auto) (0.0-1.3) x10^3/uL Absolute Nucleated RBC (0.00-0.01) x10^3u/L Lymphocytes % (24.0-44.0) % Monocytes % (0.0-12.0) % Eosinophils % (0.00-5.0) % Basophils % (0.0-0.4) % Absolute Granulocytes (1.4-6.9) x10^3/uL Basophils # (0-0.4) x10^3/uL D-Dimer (0.0-0.50) mg/L Sodium (137-145) mmol/L Potassium (3.5-5.1) mmol/L Chloride (98-107) mmol/L Carbon Dioxide (22-30) mmol/L Anion Gap (5-15) MEQ/L BUN (9-20) mg/dL Creatinine (0.66-1.25) mg/dL Estimated GFR ML/MIN Glucose (74-106) mg/dL Calcium (8.4-10.2) mg/dL Magnesium (1.6-2.3) mg/dL Total Bilirubin (0.2-1.3) mg/dL AST (17-59) U/L ALT (0-50) U/L Alkaline Phosphatase (38-126) U/L Troponin I < 0.012 (0.000-0.034) ng/mL NT-Pro-B Natriuret Pep (<300) pg/mL Serum Total Protein (6.3-8.2) g/dL Albumin (3.5-5.0) g/dL Urine Color Dark Yellow (Yellow) Urine Appearance Clear (Clear) Urine pH 6.0 (4.6-8.0) Ur Specific Mina 1.015 (1.005-1.030) Urine Protein 30 (Negative) Urine Glucose (UA) Negative (Negative) mg/dL Urine Ketones Trace A (Negative) Urine Blood Negative (Negative) Urine Nitrite Negative (Negative) Urine Bilirubin Negative (Negative) Urine Urobilinogen 1.0 A (0.2) mg/dL Ur Leukocyte Esterase Negative (Negative) U Hyaline Cast (Auto) 0-2 (0-2) /LPF Urine Microscopic RBC 0-2 (0-5) /HPF Urine Microscopic WBC 3-5 (0-5) /HPF Ur Epithelial Cells Few (None Seen) /HPF Urine Bacteria None Seen (None Seen) /HPF Urine Culture Reflexed NO (NO) Urine Opiates Level NEGATIVE (NEGATIVE) Ur Methadone NEGATIVE (NEGATIVE) Urine Barbiturates NEGATIVE (NEGATIVE) Ur Phencyclidine (PCP) NEGATIVE (NEGATIVE) Urine Amphetamine POSITIVE A (NEGATIVE) U Benzodiazepine Level NEGATIVE (NEGATIVE) Urine Cocaine NEGATIVE (NEGATIVE) Urine Marijuana (THC) POSITIVE A (NEGATIVE) Ethyl Alcohol (0-10) mg/dL - Radiology Impressions Radiology Exams & Impressions: Radiology Procedures Category Date Time Status ABDOMEN AND PELVIS W/0 CONTRAS [CT] Stat Exams 07/09/23 10:57 Completed CHEST WITH CONTRAST [CT] Stat Exams 07/09/23 11:26 Completed Ultrasound Gallbladder [GALLBLADDER] [US] Stat Exams 07/09/23 13:50 Ordered - Other Procedures and Tests Respiratory Therapy 07/09/23 13:50 EKG REPEAT IN AM Assessment/Plan (1) Leukocytosis Current Visit: Yes Status: Acute Assessment & Plan: -UA negative -WBC at 20.8 will trend -CXR with no acute cardiopulmonary processes - Zosyn for ? cholecystitis pending US -Could be reactive -Bcult x 2 -LA -Resp panel Code(s): D72.829 - ELEVATED WHITE BLOOD CELL COUNT, UNSPECIFIED (2) Gallstones Current Visit: Yes Status: Acute Assessment & Plan: -Keep NPO except meds -IVF -GB US pending/consider HIDA pending US results -Surgery consulted - zosyn pending US results Code(s): K80.20 - CALCULUS OF GALLBLADDER W/O CHOLECYSTITIS W/O OBSTRUCTION (3) JACK (acute kidney injury) Current Visit: Yes Status: Acute Assessment & Plan: -Most likely secondary to hypovolemia -Continue IVF -Continue to monitor renal/lytes Code(s): N17.9 - ACUTE KIDNEY FAILURE, UNSPECIFIED (4) Abdominal pain Current Visit: Yes Status: Acute Assessment & Plan: -see gallstones Code(s): R10.9 - UNSPECIFIED ABDOMINAL PAIN (5) Elevated d-dimer Current Visit: Yes Status: Acute Assessment & Plan: -CTA negative for PE Code(s): R79.89 - OTHER SPECIFIED ABNORMAL FINDINGS OF BLOOD CHEMISTRY (6) Gastric wall thickening Current Visit: Yes Status: Acute Assessment & Plan: -Surgery consulted for EGD Code(s): K31.89 - OTHER DISEASES OF STOMACH AND DUODENUM (7) Marijuana abuse Current Visit: Yes Status: Acute Assessment & Plan: -noted, advised cessation -UDS positive for THC and amphetamine Code(s): F12.10 - CANNABIS ABUSE, UNCOMPLICATED (8) Methamphetamine abuse Current Visit: Yes Status: Acute Assessment & Plan: -noted, advised cessation -UDS positive for THC and amphetamine Code(s): F15.10 - OTHER STIMULANT ABUSE, UNCOMPLICATED (9) Supraventricular tachycardia Current Visit: Yes Status: Acute Assessment & Plan: -Repeat EKG NS -Continue tele -echo -Cardiology consult -TSH, cmp, cbc -UDS +for amphetamine/THC -Metoprolol Code(s): I47.10 - SUPRAVENTRICULAR TACHYCARDIA, UNSPECIFIED
[2023-07-09] MEDS: Sodium Chloride 0.9% 1000 ML 1,000 ML IV SCH (14:56)
[2023-07-09] MEDS: PROTONIX 40 MG IV IV SCH (15:00)
[2023-07-09] MEDS ORDERED: DUONEB 0.5-3 MG/3 ml Neb IH PRN (15:07)
[2023-07-09] MEDS ORDERED: Docusate Sodium 100 MG PO PRN (15:07)
[2023-07-09] MEDS: Nicoderm CQ 21 MG TOP SCH (15:39)
[2023-07-09] MEDS: PIPERACILLIN/TAZOBACTAM 3.375 GM in Sodium Chloride 100ML MINI-BAG PLUS 100 ML IV SCH ×2 (17:31→23:00)
[2023-07-09] MEDS ORDERED: NON-FORMULARY ITEM (Sertraline Hcl [Sertraline Hcl] 100 MG Tablet) PO SCH (22:00)
[2023-07-09] MEDS: ZOLOFT 50 MG TABLET PO SCH (23:00)
[2023-07-10 05:06] LABS: Absolute Neutrophil Ct (ANC) 2.81 x10^3/uL (1.4-6.9); BASOPHIL % 1.6 % (0.0-0.4); Basophil (Absolute #) 0.09 x10^3/uL (0-0.4); Eosinophil % 3.4 % (0.00-5.0); Eosinophil (Absolute #) 0.19 x10^3/uL (0-0.5); Hematocrit 38.1 % (42-50); Hemoglobin 12.3 g/dL (12.5-18.0); IMMATURE GRAN # 0.02 x10^3u/L (0.00-0.03); IMMATURE GRAN % 0.4 % (0.00-0.4); Lymphocyte (Absolute #) 1.95 x10^3/uL (1.0-4.6); Mean Cell Volume 94.3 fL (78-100); Mean Corpuscular Hemoglobin 30.4 pg (26-32); Mean Corpuscular Hgb Concent. 32.3 g/dL (32-36); Mean Platelet Volume 11.4 fL (7.5-11.0); Monocyte (Absolute #) 0.51 x10^3/uL (0.0-1.3); Monocytes % 9.2 % (0.0-12.0); Neutrophil % 50.4 % (36.0-66.0); Platelet Count 216 x10^3/uL (150-450); Red Blood Count 4.04 x10^6/uL (4.1-5.6); Red Cell Distribution Width 12.6 % (11.5-14.0); White Blood Count 5.6 x10^3/uL (4.0-10.5)
--- NOTE | 2023-07-10 05:06 | PCM.NOTE ---
Date and Time: 07/10/23 0508 Subjective Assessment: HPI: is a 48 year old male with a pmhx of anxiety, depression, current daily smoker, and methamphetamine abuse presented to ED 07/09/23 with complaints of diffuse abdominal pain with associated poor appetite. Onset was about 2 weeks ago. Pain is crampy/aching in characteristic and mostly occurs when he is bending over. Pain is moderate in severity. Patient reports he has not had a bowel movement for three days and does conway with constipation. He feels like his clothes are loose but is unsure if he has lost weight recently. He additionally endorses poor sleep, shortness of breath and a dry cough with the same onset of about two weeks ago. He denies cp, palpitations, dizziness, nausea, vomiting, diarrhea, or fever/chills. He is an everyday smoker of 1 PPD for the past 30 years. He has had recent illicit drug use of THC and methamphetamine (3 days ago). 07/10: Met with patient bedside. No overnight events noted. Endorses continued complaints of diffuse abdominal pain, mostly with movement. Patient does have shortness of breath but states he is at baseline. Denies N/V. HR now controlled. WBC normalized. Denies fever,cough, sob, cp, YADAV, dizziness, N/V/D. - Review of Systems Constitutional: No Symptoms Eyes: No Symptoms Ears, Nose, & Throat: No Symptoms Respiratory: Short Of Breath Cardiac: No Symptoms Abdominal/Gastrointestinal: Abdominal Pain Genitourinary Symptoms: No Symptoms Musculoskeletal: No Symptoms Skin: No Symptoms Neurological: No Symptoms Psychological: No Symptoms Endocrine: No Symptoms Hematologic/Lymphatic: No Symptoms Immunological/Allergic: No Symptoms Objective Exam General Appearance: no apparent distress Neurologic Exam: alert, oriented x 3, cooperative Skin Exam: normal color Eye Exam: PERRL Ears, Nose, Throat Exam: dry mucous membranes Neck Exam: normal inspection Respiratory Exam: crackles/rales Cardiovascular Exam: regular rate/rhythm, normal heart sounds Gastrointestinal/Abdomen Exam: soft, normal bowel sounds, tenderness Extremity Exam: normal inspection Back Exam: normal inspection Male Genitalia Exam: deferred Rectal Exam: deferred OBJECTIVE DATA Vital Signs: Vital Signs - 24 hr Temp Pulse Resp BP BP Pulse Ox 07/10/23 04:00 97.9 F 79 16 114/63 95 07/09/23 23:49 98.2 F 69 20 111/67 96 07/09/23 19:52 98.3 F 65 20 117/57 98 07/09/23 18:41 64 18 98 07/09/23 15:47 66 22 97 07/09/23 13:58 97.8 F 71 117/65 95 07/09/23 11:50 65 22 99/77 96 07/09/23 11:40 75 20 116/71 07/09/23 11:30 72 23 118/72 97 07/09/23 11:20 72 21 131/82 95 07/09/23 11:10 72 21 130/83 95 07/09/23 11:00 84 21 136/82 98 07/09/23 10:50 98 H 26 H 118/85 94 L 07/09/23 10:49 97 07/09/23 10:44 153 H 15 122/89 96 07/09/23 10:24 97.3 F 168 H 22 145/101 99 Pain Assessment - Last Documented Pain Intensity 0 Intake and Output: Intake & Output 07/07/23 07/08/23 07/09/23 07/10/23 11:59 11:59 11:59 11:59 Intake Total 1673 Balance 1673 Weight 56.699 kg 54.3 kg Lab Results: Lab Results-Last 24 Hours 07/09/23 07/09/23 07/09/23 Range/Units 10:40 10:40 10:40 WBC 20.8 H (4.0-10.5) x10^3/uL RBC 4.68 (4.1-5.6) x10^6/uL Hgb 14.4 (12.5-18.0) g/dL Hct 42.7 (42-50) % MCV 91.2 (78-100) fL MCH 30.8 (26-32) pg MCHC 33.7 (32-36) g/dL RDW 12.4 (11.5-14.0) % Plt Count 339 (150-450) x10^3/uL MPV 11.7 H (7.5-11.0) fL Gran % 83.7 H (36.0-66.0) % Immature Gran % (Auto) 0.6 H (0.00-0.4) % Nucleat RBC Rel Count 0.0 (0.00-0.1) % Eos # (Auto) 0.02 (0-0.5) x10^3/uL Immature Gran # (Auto) 0.13 H (0.00-0.03) x10^3u/L Absolute Lymphs (auto) 1.61 (1.0-4.6) x10^3/uL Absolute Monos (auto) 1.50 H (0.0-1.3) x10^3/uL Absolute Nucleated RBC 0.00 (0.00-0.01) x10^3u/L Lymphocytes % 7.8 L (24.0-44.0) % Monocytes % 7.2 (0.0-12.0) % Eosinophils % 0.1 (0.00-5.0) % Basophils % 0.6 (0.0-0.4) % Absolute Granulocytes 17.37 H (1.4-6.9) x10^3/uL Basophils # 0.12 (0-0.4) x10^3/uL D-Dimer 0.94 H* (0.0-0.50) mg/L Sodium 135 L (137-145) mmol/L Potassium 4.4 (3.5-5.1) mmol/L Chloride 100 (98-107) mmol/L Carbon Dioxide 18 L (22-30) mmol/L Anion Gap 21.4 H (5-15) MEQ/L BUN 13 (9-20) mg/dL Creatinine 1.35 H (0.66-1.25) mg/dL Estimated GFR 64.0 ML/MIN Glucose 72 L (74-106) mg/dL Lactic Acid (0.4-2.0) Calcium 9.8 (8.4-10.2) mg/dL Magnesium 1.7 (1.6-2.3) mg/dL Total Bilirubin 1.20 (0.2-1.3) mg/dL AST 38 (17-59) U/L ALT 30 (0-50) U/L Alkaline Phosphatase 71 (38-126) U/L Troponin I (0.000-0.034) ng/mL NT-Pro-B Natriuret Pep 201 (<300) pg/mL Serum Total Protein 7.6 (6.3-8.2) g/dL Albumin 4.6 (3.5-5.0) g/dL TSH 3rd Generation (0.47-4.68) mIU/L Urine Color (Yellow) Urine Appearance (Clear) Urine pH (4.6-8.0) Ur Specific Morton (1.005-1.030) Urine Protein (Negative) Urine Glucose (UA) (Negative) mg/dL Urine Ketones (Negative) Urine Blood (Negative) Urine Nitrite (Negative) Urine Bilirubin (Negative) Urine Urobilinogen (0.2) mg/dL Ur Leukocyte Esterase (Negative) U Hyaline Cast (Auto) (0-2) /LPF Urine Microscopic RBC (0-5) /HPF Urine Microscopic WBC (0-5) /HPF Ur Epithelial Cells (None Seen) /HPF Urine Bacteria (None Seen) /HPF Urine Culture Reflexed (NO) Urine Opiates Level (NEGATIVE) Ur Methadone (NEGATIVE) Urine Barbiturates (NEGATIVE) Ur Phencyclidine (PCP) (NEGATIVE) Urine Amphetamine (NEGATIVE) U Benzodiazepine Level (NEGATIVE) Urine Cocaine (NEGATIVE) Urine Marijuana (THC) (NEGATIVE) Ethyl Alcohol < 10 (0-10) mg/dL 07/09/23 07/09/23 07/09/23 Range/Units 10:40 10:58 10:59 WBC (4.0-10.5) x10^3/uL RBC (4.1-5.6) x10^6/uL Hgb (12.5-18.0) g/dL Hct (42-50) % MCV (78-100) fL MCH (26-32) pg MCHC (32-36) g/dL RDW (11.5-14.0) % Plt Count (150-450) x10^3/uL MPV (7.5-11.0) fL Gran % (36.0-66.0) % Immature Gran % (Auto) (0.00-0.4) % Nucleat RBC Rel Count (0.00-0.1) % Eos # (Auto) (0-0.5) x10^3/uL Immature Gran # (Auto) (0.00-0.03) x10^3u/L Absolute Lymphs (auto) (1.0-4.6) x10^3/uL Absolute Monos (auto) (0.0-1.3) x10^3/uL Absolute Nucleated RBC (0.00-0.01) x10^3u/L Lymphocytes % (24.0-44.0) % Monocytes % (0.0-12.0) % Eosinophils % (0.00-5.0) % Basophils % (0.0-0.4) % Absolute Granulocytes (1.4-6.9) x10^3/uL Basophils # (0-0.4) x10^3/uL D-Dimer (0.0-0.50) mg/L Sodium (137-145) mmol/L Potassium (3.5-5.1) mmol/L Chloride (98-107) mmol/L Carbon Dioxide (22-30) mmol/L Anion Gap (5-15) MEQ/L BUN (9-20) mg/dL Creatinine (0.66-1.25) mg/dL Estimated GFR ML/MIN Glucose (74-106) mg/dL Lactic Acid (0.4-2.0) Calcium (8.4-10.2) mg/dL Magnesium (1.6-2.3) mg/dL Total Bilirubin (0.2-1.3) mg/dL AST (17-59) U/L ALT (0-50) U/L Alkaline Phosphatase (38-126) U/L Troponin I < 0.012 (0.000-0.034) ng/mL NT-Pro-B Natriuret Pep (<300) pg/mL Serum Total Protein (6.3-8.2) g/dL Albumin (3.5-5.0) g/dL TSH 3rd Generation (0.47-4.68) mIU/L Urine Color Dark Yellow (Yellow) Urine Appearance Clear (Clear) Urine pH 6.0 (4.6-8.0) Ur Specific Morton 1.015 (1.005-1.030) Urine Protein 30 (Negative) Urine Glucose (UA) Negative (Negative) mg/dL Urine Ketones Trace A (Negative) Urine Blood Negative (Negative) Urine Nitrite Negative (Negative) Urine Bilirubin Negative (Negative) Urine Urobilinogen 1.0 A (0.2) mg/dL Ur Leukocyte Esterase Negative (Negative) U Hyaline Cast (Auto) 0-2 (0-2) /LPF Urine Microscopic RBC 0-2 (0-5) /HPF Urine Microscopic WBC 3-5 (0-5) /HPF Ur Epithelial Cells Few (None Seen) /HPF Urine Bacteria None Seen (None Seen) /HPF Urine Culture Reflexed NO (NO) Urine Opiates Level NEGATIVE (NEGATIVE) Ur Methadone NEGATIVE (NEGATIVE) Urine Barbiturates NEGATIVE (NEGATIVE) Ur Phencyclidine (PCP) NEGATIVE (NEGATIVE) Urine Amphetamine POSITIVE A (NEGATIVE) U Benzodiazepine Level NEGATIVE (NEGATIVE) Urine Cocaine NEGATIVE (NEGATIVE) Urine Marijuana (THC) POSITIVE A (NEGATIVE) Ethyl Alcohol (0-10) mg/dL 07/09/23 07/09/23 07/09/23 Range/Units 15:03 15:03 15:32 WBC (4.0-10.5) x10^3/uL RBC (4.1-5.6) x10^6/uL Hgb (12.5-18.0) g/dL Hct (42-50) % MCV (78-100) fL MCH (26-32) pg MCHC (32-36) g/dL RDW (11.5-14.0) % Plt Count (150-450) x10^3/uL MPV (7.5-11.0) fL Gran % (36.0-66.0) % Immature Gran % (Auto) (0.00-0.4) % Nucleat RBC Rel Count (0.00-0.1) % Eos # (Auto) (0-0.5) x10^3/uL Immature Gran # (Auto) (0.00-0.03) x10^3u/L Absolute Lymphs (auto) (1.0-4.6) x10^3/uL Absolute Monos (auto) (0.0-1.3) x10^3/uL Absolute Nucleated RBC (0.00-0.01) x10^3u/L Lymphocytes % (24.0-44.0) % Monocytes % (0.0-12.0) % Eosinophils % (0.00-5.0) % Basophils % (0.0-0.4) % Absolute Granulocytes (1.4-6.9) x10^3/uL Basophils # (0-0.4) x10^3/uL D-Dimer (0.0-0.50) mg/L Sodium (137-145) mmol/L Potassium (3.5-5.1) mmol/L Chloride (98-107) mmol/L Carbon Dioxide (22-30) mmol/L Anion Gap (5-15) MEQ/L BUN (9-20) mg/dL Creatinine (0.66-1.25) mg/dL Estimated GFR ML/MIN Glucose (74-106) mg/dL Lactic Acid 1.0 (0.4-2.0) Calcium (8.4-10.2) mg/dL Magnesium (1.6-2.3) mg/dL Total Bilirubin (0.2-1.3) mg/dL AST (17-59) U/L ALT (0-50) U/L Alkaline Phosphatase (38-126) U/L Troponin I 0.021 (0.000-0.034) ng/mL NT-Pro-B Natriuret Pep (<300) pg/mL Serum Total Protein (6.3-8.2) g/dL Albumin (3.5-5.0) g/dL TSH 3rd Generation 2.450 (0.47-4.68) mIU/L Urine Color (Yellow) Urine Appearance (Clear) Urine pH (4.6-8.0) Ur Specific Morton (1.005-1.030) Urine Protein (Negative) Urine Glucose (UA) (Negative) mg/dL Urine Ketones (Negative) Urine Blood (Negative) Urine Nitrite (Negative) Urine Bilirubin (Negative) Urine Urobilinogen (0.2) mg/dL Ur Leukocyte Esterase (Negative) U Hyaline Cast (Auto) (0-2) /LPF Urine Microscopic RBC (0-5) /HPF Urine Microscopic WBC (0-5) /HPF Ur Epithelial Cells (None Seen) /HPF Urine Bacteria (None Seen) /HPF Urine Culture Reflexed (NO) Urine Opiates Level (NEGATIVE) Ur Methadone (NEGATIVE) Urine Barbiturates (NEGATIVE) Ur Phencyclidine (PCP) (NEGATIVE) Urine Amphetamine (NEGATIVE) U Benzodiazepine Level (NEGATIVE) Urine Cocaine (NEGATIVE) Urine Marijuana (THC) (NEGATIVE) Ethyl Alcohol (0-10) mg/dL 07/09/ Range/Units 19:20 WBC (4.0-10.5) x10^3/uL RBC (4.1-5.6) x10^6/uL Hgb (12.5-18.0) g/dL Hct (42-50) % MCV (78-100) fL MCH (26-32) pg MCHC (32-36) g/dL RDW (11.5-14.0) % Plt Count (150-450) x10^3/uL MPV (7.5-11.0) fL Gran % (36.0-66.0) % Immature Gran % (Auto) (0.00-0.4) % Nucleat RBC Rel Count (0.00-0.1) % Eos # (Auto) (0-0.5) x10^3/uL Immature Gran # (Auto) (0.00-0.03) x10^3u/L Absolute Lymphs (auto) (1.0-4.6) x10^3/uL Absolute Monos (auto) (0.0-1.3) x10^3/uL Absolute Nucleated RBC (0.00-0.01) x10^3u/L Lymphocytes % (24.0-44.0) % Monocytes % (0.0-12.0) % Eosinophils % (0.00-5.0) % Basophils % (0.0-0.4) % Absolute Granulocytes (1.4-6.9) x10^3/uL Basophils # (0-0.4) x10^3/uL D-Dimer (0.0-0.50) mg/L Sodium (137-145) mmol/L Potassium (3.5-5.1) mmol/L Chloride (98-107) mmol/L Carbon Dioxide (22-30) mmol/L Anion Gap (5-15) MEQ/L BUN (9-20) mg/dL Creatinine (0.66-1.25) mg/dL Estimated GFR ML/MIN Glucose (74-106) mg/dL Lactic Acid (0.4-2.0) Calcium (8.4-10.2) mg/dL Magnesium (1.6-2.3) mg/dL Total Bilirubin (0.2-1.3) mg/dL AST (17-59) U/L ALT (0-50) U/L Alkaline Phosphatase (38-126) U/L Troponin I 0.024 (0.000-0.034) ng/mL NT-Pro-B Natriuret Pep (<300) pg/mL Serum Total Protein (6.3-8.2) g/dL Albumin (3.5-5.0) g/dL TSH 3rd Generation (0.47-4.68) mIU/L Urine Color (Yellow) Urine Appearance (Clear) Urine pH (4.6-8.0) Ur Specific Morton (1.005-1.030) Urine Protein (Negative) Urine Glucose (UA) (Negative) mg/dL Urine Ketones (Negative) Urine Blood (Negative) Urine Nitrite (Negative) Urine Bilirubin (Negative) Urine Urobilinogen (0.2) mg/dL Ur Leukocyte Esterase (Negative) U Hyaline Cast (Auto) (0-2) /LPF Urine Microscopic RBC (0-5) /HPF Urine Microscopic WBC (0-5) /HPF Ur Epithelial Cells (None Seen) /HPF Urine Bacteria (None Seen) /HPF Urine Culture Reflexed (NO) Urine Opiates Level (NEGATIVE) Ur Methadone (NEGATIVE) Urine Barbiturates (NEGATIVE) Ur Phencyclidine (PCP) (NEGATIVE) Urine Amphetamine (NEGATIVE) U Benzodiazepine Level (NEGATIVE) Urine Cocaine (NEGATIVE) Urine Marijuana (THC) (NEGATIVE) Ethyl Alcohol (0-10) mg/dL Radiology Exams: Radiology Procedures Category Date Time Status ABDOMEN AND PELVIS W/0 CONTRAS [CT] Stat Exams 07/09/23 10:57 Completed CHEST WITH CONTRAST [CT] Stat Exams 07/09/23 11:26 Completed ECHO W/2D AND DOPPLER [US] Routine Exams 07/09/23 15:06 Ordered Ultrasound Gallbladder [GALLBLADDER] [US] Stat Exams 07/09/23 13:50 Taken Assessment/Plan (1) Leukocytosis Current Visit: Yes Status: Acute Assessment & Plan: -UA negative -WBC at 20.8 will trend -CXR with no acute cardiopulmonary processes - Zosyn for ? cholecystitis pending US -Could be reactive -Bcult x 2 -LA -Resp panel Code(s): D72.829 - ELEVATED WHITE BLOOD CELL COUNT, UNSPECIFIED (2) Gallstones Current Visit: Yes Status: Acute Assessment & Plan: -Keep NPO except meds -IVF -GB US pending/consider HIDA pending US results -Surgery consulted - zosyn pending US results 07/10: -US negative for acute cholecystitis or biliary distention. GV is contracted with gallstone. Incidental finding of left lobe hepatic hyperechogenic lesion, ?hemangioma. May follow up OP -Surgery consulted with plans for cholecystecomy this evening -Continue zosyn Code(s): K80.20 - CALCULUS OF GALLBLADDER W/O CHOLECYSTITIS W/O OBSTRUCTION (3) JACK (acute kidney injury) Current Visit: Yes Status: Acute Assessment & Plan: -Most likely secondary to hypovolemia -Continue IVF -Continue to monitor renal/lytes 07/10: -Resolved Code(s): N17.9 - ACUTE KIDNEY FAILURE, UNSPECIFIED (4) Abdominal pain Current Visit: Yes Status: Acute Assessment & Plan: -see gallstones Code(s): R10.9 - UNSPECIFIED ABDOMINAL PAIN (5) Elevated d-dimer Current Visit: Yes Status: Acute Assessment & Plan: -CTA negative for PE Code(s): R79.89 - OTHER SPECIFIED ABNORMAL FINDINGS OF BLOOD CHEMISTRY (6) Gastric wall thickening Current Visit: Yes Status: Acute Assessment & Plan: -Surgery consulted for EGD Code(s): K31.89 - OTHER DISEASES OF STOMACH AND DUODENUM (7) Marijuana abuse Current Visit: Yes Status: Acute Assessment & Plan: -noted, advised cessation -UDS positive for THC and amphetamine Code(s): F12.10 - CANNABIS ABUSE, UNCOMPLICATED (8) Methamphetamine abuse Current Visit: Yes Status: Acute Assessment & Plan: -noted, advised cessation -UDS positive for THC and amphetamine Code(s): F15.10 - OTHER STIMULANT ABUSE, UNCOMPLICATED (9) Supraventricular tachycardia Current Visit: Yes Status: Acute Assessment & Plan: -Repeat EKG NS -Continue tele -echo -Cardiology consult -TSH, cmp, cbc -UDS +for amphetamine/THC -Metoprolol 07/10: -Resolved, continue metoprolol -Cards consult eval, no changes Code(s): I47.10 - SUPRAVENTRICULAR TACHYCARDIA, UNSPECIFIED Code(s): D72.829 - ELEVATED WHITE BLOOD CELL COUNT, UNSPECIFIED (2) Gallstones Current Visit: Yes Status: Acute Code(s): K80.20 - CALCULUS OF GALLBLADDER W/O CHOLECYSTITIS W/O OBSTRUCTION (3) JACK (acute kidney injury) Current Visit: Yes Status: Acute Code(s): N17.9 - ACUTE KIDNEY FAILURE, UNSPECIFIED (4) Abdominal pain Current Visit: Yes Status: Acute Code(s): R10.9 - UNSPECIFIED ABDOMINAL PAIN (5) Elevated d-dimer Current Visit: Yes Status: Acute Code(s): R79.89 - OTHER SPECIFIED ABNORMAL FINDINGS OF BLOOD CHEMISTRY (6) Gastric wall thickening Current Visit: Yes Status: Acute Code(s): K31.89 - OTHER DISEASES OF STOMACH AND DUODENUM (7) Marijuana abuse Current Visit: Yes Status: Acute Code(s): F12.10 - CANNABIS ABUSE, UNCOMPLICATED (8) Methamphetamine abuse Current Visit: Yes Status: Acute Code(s): F15.10 - OTHER STIMULANT ABUSE, UNCOMPLICATED (9) Supraventricular tachycardia Current Visit: Yes Status: Acute Code(s): I47.10 - SUPRAVENTRICULAR TACHYCARDIA, UNSPECIFIED
[2023-07-10 05:24] LABS: ALBUMIN 3.3 g/dL (3.5-5.0); ANION GAP 12.7 MEQ/L (5-15); BILIRUBIN,TOTAL 0.9 mg/dL (0.2-1.3); Calcium 8.3 mg/dL (8.4-10.2); Creatinine 1 0.86 mg/dL (0.66-1.25); EST GLOMERULAR FILTRATION RATE 105.5 ML/MIN; Potassium 3.8 mmol/L (3.5-5.1); Total Protein 6.1 g/dL (6.3-8.2)
[2023-07-10] MEDS: PIPERACILLIN/TAZOBACTAM 3.375 GM in Sodium Chloride 100ML MINI-BAG PLUS 100 ML IV SCH ×3 (05:54→16:58)
--- NOTE | 2023-07-10 08:38 | XRAY ---
Indication: Abdominal pain. Gallstone in a contracted gallbladder on same-day CT abdomen/pelvis. Two-dimensional gallbladder sonogram performed. Comparison: None Gallbladder partially contracted with 1 cm gallstone. Gallbladder wall thickening up to 4 mm presumed from contracted state. No pericholecystic fluid. Common bile duct measures 6.8 mm. No intrahepatic biliary distention. Left lobe liver demonstrates 4.7 x 1.2 x 1.7 cm slightly hyperechogenic lesion without abnormal color flow. Same-day CT abdomen/pelvis without contrast exam demonstrates this to be hypodense in attenuation. No free fluid/ascites. Remaining visualized pancreas and right kidney are sonographically unremarkable. Right kidney measures 10.5 cm in length. Impression: 1. Contracted gallbladder with gallstone. Negative for acute cholecystitis or biliary distention. 2. Incidental left lobe hepatic hyperechogenic lesion. Query hemangioma. CT or MRI with contrast exam using hemangioma protocol may confirm.
[2023-07-10] MEDS: Sodium Chloride 0.9% 1000 ML 1,000 ML IV SCH ×2 (08:43→16:10)
--- NOTE | 2023-07-10 09:07 | CONS ---
CONSULT DATE: 07/09/2023 REASON FOR CONSULT: Consultation for gallbladder disease. HISTORY: The patient is seen at bedside last night at 1800 hours on 07/08/2023. He was having epigastric pain, nausea, a pressure sensation to his right scapula. His CT scan showed stone. He is feeling better. His labs are satisfactory. His white count was elevated. He is tender at [place]. He is a fairly slim gentleman with not much going on medically. We discussed laparoscopic cholecystectomy and he would like to proceed. We will try to get him into the OR schedule tomorrow. At the moment it looks like a fairly full schedule by other surgeons but we will if this is a semi-elective case and we will continue to work on scheduling.
[2023-07-10] MEDS: PROTONIX 40 MG IV IV SCH (09:53)
[2023-07-10] MEDS ORDERED: Protonix 40MG Tablet PO SCH (10:00)
[2023-07-10] MEDS ORDERED: Lopressor 25MG Tab PO SCH (10:00)
[2023-07-10] MEDS ORDERED: SUBLIMAZE 250 MCG/5 ML ONE (13:53)
[2023-07-10] MEDS: Nicoderm CQ 21 MG TOP SCH (15:01)
[2023-07-10] MEDS ORDERED: Sensorcaine 0.25% 10 ML ONE (17:16)
[2023-07-10] MEDS ORDERED: Versed 2 MG/2 ML Injection ONE (17:49)
[2023-07-10] MEDS ORDERED: DIPRIVAN 200 MG/20 ML IV ONE (17:49)
[2023-07-10] MEDS ORDERED: SODIUM CHLORIDE 0.45% W/ 20 mEq KCL 1,000 ML IV ONE (18:10)
[2023-07-10] MEDS ORDERED: Zemuron 100 MG/10 ML ONE (18:34)
[2023-07-10] MEDS ORDERED: BRIDION 200MG/2ML IV ONE (18:35)
[2023-07-10] MEDS ORDERED: MORPHINE SULFATE 4 MG INJ IV PRN ×3 (19:52→19:58)
[2023-07-10] MEDS ORDERED: Zofran 4 MG/2 ML VIAL IV PRN ×2 (19:54→19:55)
[2023-07-10] MEDS: D5W/0.45NS W/ 20mEq KCl 1000 ML 1,000 ML IV SCH (19:56)
[2023-07-10] MEDS ORDERED: DEXTROSE 5% -NACL 0.9% 1000 ML + KCl 20 MEQ 1,000 ML IV SCH (20:00)
[2023-07-10] MEDS: ZOLOFT 50 MG TABLET PO SCH (21:26)
[2023-07-10] MEDS: MEFOXIN 1 Gm/ D5W 50 Ml** 1 G/50 ML ML IV SCH (21:26)
[2023-07-11] MEDS: PIPERACILLIN/TAZOBACTAM 3.375 GM in Sodium Chloride 100ML MINI-BAG PLUS 100 ML IV SCH ×3 (00:17→11:54)
[2023-07-11] MEDS: NORCO 5/325 MG PO PRN ×2 (03:43→10:38)
[2023-07-11 04:53] LABS: Absolute Neutrophil Ct (ANC) 7.04 x10^3/uL (1.4-6.9); BASOPHIL % 0.6 % (0.0-0.4); Basophil (Absolute #) 0.05 x10^3/uL (0-0.4); Eosinophil % 0.4 % (0.00-5.0); Eosinophil (Absolute #) 0.04 x10^3/uL (0-0.5); Hematocrit 36.4 % (42-50); Hemoglobin 11.8 g/dL (12.5-18.0); IMMATURE GRAN # 0.03 x10^3u/L (0.00-0.03); IMMATURE GRAN % 0.3 % (0.00-0.4); Lymphocyte (Absolute #) 1.31 x10^3/uL (1.0-4.6); Lymphocytes % 14.6 % (24.0-44.0); Mean Cell Volume 94.1 fL (78-100); Mean Corpuscular Hemoglobin 30.5 pg (26-32); Mean Corpuscular Hgb Concent. 32.4 g/dL (32-36); Mean Platelet Volume 10.9 fL (7.5-11.0); Monocyte (Absolute #) 0.52 x10^3/uL (0.0-1.3); Monocytes % 5.8 % (0.0-12.0); Neutrophil % 78.3 % (36.0-66.0); Platelet Count 238 x10^3/uL (150-450); Red Blood Count 3.87 x10^6/uL (4.1-5.6); Red Cell Distribution Width 12.7 % (11.5-14.0)
--- NOTE | 2023-07-11 04:57 | PCM.NOTE ---
Date and Time: 07/11/23 0454 Subjective Assessment: HPI: is a 48 year old male with a pmhx of anxiety, depression, current daily smoker, and methamphetamine abuse presented to ED 07/09/23 with complaints of diffuse abdominal pain with associated poor appetite. Onset was about 2 weeks ago. Pain is crampy/aching in characteristic and mostly occurs when he is bending over. Pain is moderate in severity. Patient reports he has not had a bowel movement for three days and does conway with constipation. He feels like his clothes are loose but is unsure if he has lost weight recently. He additionally endorses poor sleep, shortness of breath and a dry cough with the same onset of about two weeks ago. He denies cp, palpitations, dizziness, nausea, vomiting, diarrhea, or fever/chills. He is an everyday smoker of 1 PPD for the past 30 years. He has had recent illicit drug use of THC and methamphetamine (3 days ago). 07/10: Met with patient bedside. No overnight events noted. Endorses continued complaints of diffuse abdominal pain, mostly with movement. Patient does have shortness of breath but states he is at baseline. Denies N/V. HR now controlled. WBC normalized. Denies fever,cough, sob, cp, YADAV, dizziness, N/V/D. OBJECTIVE DATA Vital Signs: Vital Signs - 24 hr Temp Pulse Resp BP Pulse Ox 07/11/23 03:59 97.9 F 56 L 16 140/70 96 07/10/23 22:11 97.8 F 56 L 16 131/70 93 L 07/10/23 21:15 97.9 F 56 L 15 137/66 93 L 07/10/23 20:45 97.9 F 48 L 15 136/63 95 07/10/23 20:15 97.8 F 49 L 16 128/71 93 L 07/10/23 20:00 97.8 F 43 L 16 128/70 95 07/10/23 19:45 97.7 F 61 18 116/66 94 L 07/10/23 19:39 57 L 16 92 L 07/10/23 19:30 97.5 F 58 L 16 137/76 94 L 07/10/23 16:25 98.1 F 60 16 119/65 95 07/10/23 16:00 97.8 F 62 16 113/56 94 L 07/10/23 14:22 98.1 F 60 16 119/65 95 07/10/23 11:11 98.1 F 60 16 119/65 95 07/10/23 07:54 76 16 98 07/10/23 07:08 96.7 F 79 16 128/69 94 L Pain Assessment - Last Documented Pain Intensity 6 Pain Scale Used 0-10 Pain Scale Intake and Output: Intake & Output 07/08/23 07/09/23 07/10/23 07/11/23 11:59 11:59 11:59 11:59 Intake Total 1673 0 Balance 1673 0 Weight 56.699 kg 54.3 kg 54.3 kg Lab Results: Lab Results-Last 24 Hours 07/10/23 07/10/23 Range/Units 04:00 04:47 WBC 5.6 (4.0-10.5) x10^3/uL RBC 4.04 L (4.1-5.6) x10^6/uL Hgb 12.3 L (12.5-18.0) g/dL Hct 38.1 L (42-50) % MCV 94.3 (78-100) fL MCH 30.4 (26-32) pg MCHC 32.3 (32-36) g/dL RDW 12.6 (11.5-14.0) % Plt Count 216 D (150-450) x10^3/uL MPV 11.4 H (7.5-11.0) fL Gran % 50.4 (36.0-66.0) % Immature Gran % (Auto) 0.4 (0.00-0.4) % Nucleat RBC Rel Count 0.0 (0.00-0.1) % Eos # (Auto) 0.19 (0-0.5) x10^3/uL Immature Gran # (Auto) 0.02 (0.00-0.03) x10^3u/L Absolute Lymphs (auto) 1.95 (1.0-4.6) x10^3/uL Absolute Monos (auto) 0.51 (0.0-1.3) x10^3/uL Absolute Nucleated RBC 0.00 (0.00-0.01) x10^3u/L Lymphocytes % 35.0 (24.0-44.0) % Monocytes % 9.2 (0.0-12.0) % Eosinophils % 3.4 (0.00-5.0) % Basophils % 1.6 (0.0-0.4) % Absolute Granulocytes 2.81 (1.4-6.9) x10^3/uL Basophils # 0.09 (0-0.4) x10^3/uL Sodium 136 L (137-145) mmol/L Potassium 3.8 (3.5-5.1) mmol/L Chloride 108 H (98-107) mmol/L Carbon Dioxide 19 L (22-30) mmol/L Anion Gap 12.7 (5-15) MEQ/L BUN 12 (9-20) mg/dL Creatinine 0.86 (0.66-1.25) mg/dL Estimated GFR 105.5 ML/MIN Glucose 81 (74-106) mg/dL Calcium 8.3 L D (8.4-10.2) mg/dL Total Bilirubin 0.90 (0.2-1.3) mg/dL AST 35 (17-59) U/L ALT 25 (0-50) U/L Alkaline Phosphatase 47 (38-126) U/L Serum Total Protein 6.1 L (6.3-8.2) g/dL Albumin 3.3 L (3.5-5.0) g/dL Radiology Exams: Radiology Procedures Category Date Time Status ABDOMEN AND PELVIS W/0 CONTRAS [CT] Stat Exams 07/09/23 10:57 Completed CHEST WITH CONTRAST [CT] Stat Exams 07/09/23 11:26 Completed ECHO W/2D AND DOPPLER [US] Routine Exams 07/10/23 07:38 Taken Ultrasound Gallbladder [GALLBLADDER] [US] Stat Exams 07/09/23 13:50 Completed Assessment/Plan (1) Leukocytosis Current Visit: Yes Status: Acute Assessment & Plan: -UA negative -WBC at 20.8 will trend -CXR with no acute cardiopulmonary processes - Zosyn for ? cholecystitis pending US -Could be reactive -Bcult x 2 -LA -Resp panel Code(s): D72.829 - ELEVATED WHITE BLOOD CELL COUNT, UNSPECIFIED (2) Gallstones Current Visit: Yes Status: Acute Assessment & Plan: -Keep NPO except meds -IVF -GB US pending/consider HIDA pending US results -Surgery consulted - zosyn pending US results 07/10: -US negative for acute cholecystitis or biliary distention. GV is contracted with gallstone. Incidental finding of left lobe hepatic hyperechogenic lesion, ?hemangioma. May follow up OP -Surgery consulted with plans for cholecystecomy this evening -Continue zosyn Code(s): K80.20 - CALCULUS OF GALLBLADDER W/O CHOLECYSTITIS W/O OBSTRUCTION (3) JACK (acute kidney injury) Current Visit: Yes Status: Acute Assessment & Plan: -Most likely secondary to hypovolemia -Continue IVF -Continue to monitor renal/lytes 07/10: -Resolved Code(s): N17.9 - ACUTE KIDNEY FAILURE, UNSPECIFIED (4) Abdominal pain Current Visit: Yes Status: Acute Assessment & Plan: -see gallstones Code(s): R10.9 - UNSPECIFIED ABDOMINAL PAIN (5) Elevated d-dimer Current Visit: Yes Status: Acute Assessment & Plan: -CTA negative for PE Code(s): R79.89 - OTHER SPECIFIED ABNORMAL FINDINGS OF BLOOD CHEMISTRY (6) Gastric wall thickening Current Visit: Yes Status: Acute Assessment & Plan: -Surgery consulted for EGD Code(s): K31.89 - OTHER DISEASES OF STOMACH AND DUODENUM (7) Marijuana abuse Current Visit: Yes Status: Acute Assessment & Plan: -noted, advised cessation -UDS positive for THC and amphetamine Code(s): F12.10 - CANNABIS ABUSE, UNCOMPLICATED (8) Methamphetamine abuse Current Visit: Yes Status: Acute Assessment & Plan: -noted, advised cessation -UDS positive for THC and amphetamine Code(s): F15.10 - OTHER STIMULANT ABUSE, UNCOMPLICATED (9) Supraventricular tachycardia Current Visit: Yes Status: Acute Assessment & Plan: -Repeat EKG NS -Continue tele -echo -Cardiology consult -TSH, cmp, cbc -UDS +for amphetamine/THC -Metoprolol 07/10: -Resolved, continue metoprolol -Cards consult eval, no changes Code(s): I47.10 - SUPRAVENTRICULAR TACHYCARDIA, UNSPECIFIED Code(s): D72.829 - ELEVATED WHITE BLOOD CELL COUNT, UNSPECIFIED Code(s): D72.829 - ELEVATED WHITE BLOOD CELL COUNT, UNSPECIFIED (2) Gallstones Current Visit: Yes Status: Acute Code(s): K80.20 - CALCULUS OF GALLBLADDER W/O CHOLECYSTITIS W/O OBSTRUCTION (3) JACK (acute kidney injury) Current Visit: Yes Status: Acute Code(s): N17.9 - ACUTE KIDNEY FAILURE, UNSPECIFIED (4) Abdominal pain Current Visit: Yes Status: Acute Code(s): R10.9 - UNSPECIFIED ABDOMINAL PAIN (5) Elevated d-dimer Current Visit: Yes Status: Acute Code(s): R79.89 - OTHER SPECIFIED ABNORMAL FINDINGS OF BLOOD CHEMISTRY (6) Gastric wall thickening Current Visit: Yes Status: Acute Code(s): K31.89 - OTHER DISEASES OF STOMACH AND DUODENUM (7) Marijuana abuse Current Visit: Yes Status: Acute Code(s): F12.10 - CANNABIS ABUSE, UNCOMPLICATED (8) Methamphetamine abuse Current Visit: Yes Status: Acute Code(s): F15.10 - OTHER STIMULANT ABUSE, UNCOMPLICATED (9) Supraventricular tachycardia Current Visit: Yes Status: Acute Code(s): I47.10 - SUPRAVENTRICULAR TACHYCARDIA, UNSPECIFIED
[2023-07-11 05:02] LABS: ANION GAP 10.8 MEQ/L (5-15); BILIRUBIN,TOTAL 0.6 mg/dL (0.2-1.3); Calcium 7.9 mg/dL (8.4-10.2); Creatinine 1 0.72 mg/dL (0.66-1.25); EST GLOMERULAR FILTRATION RATE 111.3 ML/MIN; MAGNESIUM 1.8 mg/dL (1.6-2.3); Total Protein 5.7 g/dL (6.3-8.2)
[2023-07-11] MEDS: MEFOXIN 1 Gm/ D5W 50 Ml** 1 G/50 ML ML IV SCH ×2 (05:05→14:14)
[2023-07-11 07:31] VITALS: RESP 18
[2023-07-11] MEDS: Sodium Chloride 0.9% 1000 ML 1,000 ML IV SCH (07:51)
[2023-07-11] MEDS ORDERED: MORPHINE SULFATE 2 MG INJ IV PRN (10:15)
--- NOTE | 2023-07-11 10:31 | PCM.DS ---
Discharge Summary Date of Admission: 07/09/23 13:46 Date of Discharge: 07/11/23 Admitting Physician: LARRY GOTTLIEB MD Consults: Consults on Case 07/09/23 13:50 Consult Surgery ROUTINE 07/09/23 15:06 Consult Cardiology ROUTINE Primary Care Provider: NO FAMILY DOCTOR Allergies Allergies morphine Allergy (Verified 07/09/23 13:54) pt states he gets a knot in his abdomen Hospital Summary - Hospital Course Hospital Course: is a 48 year old male with a pmhx of anxiety, depression, current daily smoker, and methamphetamine abuse presented to ED 07/09/23 with complaints of diffuse abdominal pain with associated poor appetite. Onset was about [address] Subtle thickening of the antrum and pylorus of the stomach needs further assessment with endoscopy.Contracted gallbladder with hyperdense calculus. US Contracted gallbladder with gallstone. Negative for acute cholecystitis or biliary distention.. Incidental left lobe hepatic hyperechogenic lesion. Query hemangioma, advised follow up with pcp as OP. Surgery was consulted, lap cholecystecomy performed. Patient doing well. Pain controlled, diet tolerated. Cleared by surgery with close follow up. Patient did present with SVT, UDS positive for methamphetamine. Metoprolol started, HR controlled, cards advised cessation of methampetamine and continue metoprolol. Follow up as op in one week. Patient is stable and ready for discharge, will send home with a three day supply of pain medications, antibiotics, and metoprolol. Follow up with pcp/surgery/ cards. Discharge Note New Diagnosis: SVT, cholecystitis New Medications: norco/metoprolol/Aumentin Follow Up: PCP/Cardiology/Surgery Results pending: pathology Latest Assessment & Plan -UA negative -WBC at 20.8 will trend -CXR with no acute cardiopulmonary processes - Zosyn for ? cholecystitis pending US -Could be reactive -Bcult x 2 -LA -Resp panel Code(s): D72.829 - ELEVATED WHITE BLOOD CELL COUNT, UNSPECIFIED (2) Gallstones Current Visit: Yes Status: Acute Assessment & Plan: -Keep NPO except meds -IVF -GB US pending/consider HIDA pending US results -Surgery consulted - zosyn pending US results 07/10: -US negative for acute cholecystitis or biliary distention. GV is contracted with gallstone. Incidental finding of left lobe hepatic hyperechogenic lesion, ?hemangioma. May follow up OP -Surgery consulted with plans for cholecystecomy this evening -Continue zosyn Code(s): K80.20 - CALCULUS OF GALLBLADDER W/O CHOLECYSTITIS W/O OBSTRUCTION (3) JACK (acute kidney injury) Current Visit: Yes Status: Acute Assessment & Plan: -Most likely secondary to hypovolemia -Continue IVF -Continue to monitor renal/lytes 07/10: -Resolved Code(s): N17.9 - ACUTE KIDNEY FAILURE, UNSPECIFIED (4) Abdominal pain Current Visit: Yes Status: Acute Assessment & Plan: -see gallstones Code(s): R10.9 - UNSPECIFIED ABDOMINAL PAIN (5) Elevated d-dimer Current Visit: Yes Status: Acute Assessment & Plan: -CTA negative for PE Code(s): R79.89 - OTHER SPECIFIED ABNORMAL FINDINGS OF BLOOD CHEMISTRY (6) Gastric wall thickening Current Visit: Yes Status: Acute Assessment & Plan: -Surgery consulted for EGD Code(s): K31.89 - OTHER DISEASES OF STOMACH AND DUODENUM (7) Marijuana abuse Current Visit: Yes Status: Acute Assessment & Plan: -noted, advised cessation -UDS positive for THC and amphetamine Code(s): F12.10 - CANNABIS ABUSE, UNCOMPLICATED (8) Methamphetamine abuse Current Visit: Yes Status: Acute Assessment & Plan: -noted, advised cessation -UDS positive for THC and amphetamine Code(s): F15.10 - OTHER STIMULANT ABUSE, UNCOMPLICATED (9) Supraventricular tachycardia Current Visit: Yes Status: Acute Assessment & Plan: -Repeat EKG NS -Continue tele -echo -Cardiology consult -TSH, cmp, cbc -UDS +for amphetamine/THC -Metoprolol 07/10: -Resolved, continue metoprolol -Cards consult eval, no changes Code(s): I47.10 - SUPRAVENTRICULAR TACHYCARDIA, UNSPECIFIED I spent 35 minutes [id number] with the patient on the day of discharge performing discharge exam, discussing hospital stay and discharge instructions with patient and caregivers, preparation of discharge records, prescriptions & referral forms and addressing any questions/concerns the patient had as documented above. - Vitals & Intake/Output Vital Signs: Vital Signs Temperature 97.0 F 07/11/23 07:14 Pulse Rate 65 07/11/23 07:29 Respiratory Rate 18 07/11/23 07:29 Blood Pressure 124/66 07/11/23 07:14 O2 Sat by Pulse Oximetry 94 L 07/11/23 07:29 Intake & Output: Intake & Output 07/08/23 07/09/23 07/10/23 07/11/23 11:59 11:59 11:59 11:59 Intake Total 1673 0 Balance 1673 0 Weight 56.699 kg 54.3 kg 54.3 kg - Lab Result Diagrams: 07/11/23 04:40 07/11/23 04:40 Lab Results-Last 24 Hrs: Lab Results-Last 24 Hours 07/11/23 07/11/23 Range/Units 04:40 04:40 WBC 9.0 (4.0-10.5) x10^3/uL RBC 3.87 L (4.1-5.6) x10^6/uL Hgb 11.8 L (12.5-18.0) g/dL Hct 36.4 L (42-50) % MCV 94.1 (78-100) fL MCH 30.5 (26-32) pg MCHC 32.4 (32-36) g/dL RDW 12.7 (11.5-14.0) % Plt Count 238 (150-450) x10^3/uL MPV 10.9 (7.5-11.0) fL Gran % 78.3 H (36.0-66.0) % Immature Gran % (Auto) 0.3 (0.00-0.4) % Nucleat RBC Rel Count 0.0 (0.00-0.1) % Eos # (Auto) 0.04 (0-0.5) x10^3/uL Immature Gran # (Auto) 0.03 (0.00-0.03) x10^3u/L Absolute Lymphs (auto) 1.31 (1.0-4.6) x10^3/uL Absolute Monos (auto) 0.52 (0.0-1.3) x10^3/uL Absolute Nucleated RBC 0.00 (0.00-0.01) x10^3u/L Lymphocytes % 14.6 L (24.0-44.0) % Monocytes % 5.8 (0.0-12.0) % Eosinophils % 0.4 (0.00-5.0) % Basophils % 0.6 (0.0-0.4) % Absolute Granulocytes 7.04 H (1.4-6.9) x10^3/uL Basophils # 0.05 (0-0.4) x10^3/uL Sodium 132 L (137-145) mmol/L Potassium 4.0 (3.5-5.1) mmol/L Chloride 105 (98-107) mmol/L Carbon Dioxide 20 L (22-30) mmol/L Anion Gap 10.8 (5-15) MEQ/L BUN 9 (9-20) mg/dL Creatinine 0.72 (0.66-1.25) mg/dL Estimated GFR 111.3 ML/MIN Glucose 154 H (74-106) mg/dL Calcium 7.9 L (8.4-10.2) mg/dL Magnesium 1.8 (1.6-2.3) mg/dL Total Bilirubin 0.60 (0.2-1.3) mg/dL AST 43 (17-59) U/L ALT 32 (0-50) U/L Alkaline Phosphatase 40 (38-126) U/L Serum Total Protein 5.7 L (6.3-8.2) g/dL Albumin 3.0 L (3.5-5.0) g/dL Micro Results-Entire Visit: Microbiology 07/09/23 15:35 Blood Culture - Preliminary Blood 07/09/23 15:25 Blood Culture - Preliminary Blood - Radiology Exams Ordered Rad Exams-Entire Visit: Radiology Procedures Category Date Time Status ABDOMEN AND PELVIS W/0 CONTRAS [CT] Stat Exams 07/09/23 10:57 Completed CHEST WITH CONTRAST [CT] Stat Exams 07/09/23 11:26 Completed ECHO W/2D AND DOPPLER [US] Routine Exams 07/10/23 07:38 Taken Ultrasound Gallbladder [GALLBLADDER] [US] Stat Exams 07/09/23 13:50 Completed - Procedures and Test Procedures and Tests throughout Hospitalization: Therapy Orders & Screens 07/09/23 13:50 EKG REPEAT IN AM Comment: 07/09/23 15:07 Respiratory Therapy Consult ONCE Comment: Reason For Exam: Diagnosis: Supraventricular tachycardia 07/09/23 15:39 Respiratory Therapy Assessment DAILY Comment: Diagnosis: Supraventricular tachycardia Discharge Exam General Appearance: no apparent distress Neurologic Exam: alert, oriented x 3 Eye Exam: PERRL Ears, Nose, Throat Exam: normal ENT inspection Neck Exam: normal inspection Respiratory Exam: crackles/rales Cardiovascular Exam: regular rate/rhythm, normal heart sounds Gastrointestinal/Abdomen Exam: soft, normal bowel sounds, tenderness, other (pacheco rgical site abdomen CDI no erythema/streaking) Male Genitalia Exam: deferred Rectal Exam: deferred Back Exam: normal inspection Extremity Exam: normal inspection Skin Exam: normal color Final Diagnosis/Problem List - Final Discharge Diagnosis/Problem (1) Leukocytosis Current Visit: Yes Status: Acute Code(s): D72.829 - ELEVATED WHITE BLOOD C ELL COUNT, UNSPECIFIED (2) Gallstones Current Visit: Yes Status: Acute Code(s): K80.20 - CALCULUS OF GALLBLADDER W/O CHOLECYSTITIS W/O OBSTRUCTION (3) JACK (acute kidney injury) Current Visit: Yes Status: Acute Code(s): N17.9 - ACUTE KIDNEY FAILURE, UNSPECIFIED (4) Abdominal pain Current Visit: Yes Status: Acute Code(s): R10.9 - UNSPECIFIED ABDOMINAL PAIN (5) Elevated d-dimer Current Visit: Yes Status: Acute Code(s): R79.89 - OTHER SPECIFIED ABNORMAL FINDINGS OF BLOOD CHEMISTRY (6) Gastric wall thickening Current Visit: Yes Status: Acute Code(s): K31.89 - OTHER DISEASES OF STOMACH AND DUODENUM (7) Marijuana abuse Current Visit: Yes Status: Acute Code(s): F12.10 - CANNABIS ABUSE, UNCOMPLICATED (8) Methamphetamine abuse Current Visit: Yes Status: Acute Code(s): F15.10 - OTHER STIMULANT ABUSE, UNCOMPLICATED (9) Supraventricular tachycardia Current Visit: Yes Status: Acute Code(s): I47.10 - SUPRAVENTRICULAR TACHYCARDIA, UNSPECIFIED - Discharge Disposition: Home, Self-Care Condition: Stable Prescriptions: New Amox Tr/Potass Clav. 875 mg [Augmentin 875-125 Tablet] 875 mg PO BID 7 Days #14 tablet Hydrocodone/Acetaminophen [Hydrocodone-Acetamin 5-325 mg] 1 tab PO Q4HPRN PRN 3 Days #18 tablet MDD 6 PRN Reason: Pain Metoprolol Tartrate 25 mg [Lopressor 25MG Tab] 12.5 mg PO DAILY 30 Days #15 tab Continue Sertraline HCl 100 mg PO HS Follow up with: JOSH CAMARGO MD [ACTIVE STAFF] - SONIYA REZA [ACTIVE STAFF] - BAIRON FISHER MD [CONSULTING PHYSICIAN] -
--- NOTE | 2023-07-11 10:31 | OP ---
SURGERY DATE/TIME: 07/10/2023 6212 PREOPERATIVE DIAGNOSIS: Symptomatic cholelithiasis. POSTOPERATIVE DIAGNOSIS: Symptomatic cholelithiasis with acute cholecystitis. PROCEDURE: Laparoscopic cholecystectomy. SURGEON: Dr. Lisandro Lau. ANESTHESIA: General. ESTIMATED BLOOD LOSS: None. DRAINS: None. COMPLICATIONS: None. CONDITION: Stable. INDICATIONS: A patient presented with acute episode. CT revealing stone. Procedure discussed in detail and wished to proceed. DESCRIPTION OF PROCEDURE AND FINDINGS: Taken to surgery. General anesthetic, routine prep and drape. Veress needle inserted. Opening pressure of 1, insufflating pressure 14. A 5 port introduced. His liver is good. His internal organs were good. His gallbladder is chronically inflamed and it was also acutely inflamed with some edema. Cystic duct defined. Cystic artery defined, both structures triply clipped and transected. Clips noted across and well approximated. Gallbladder rolled out of gallbladder fossa. Gallbladder delivered through the epigastric hole with some widening and had been placed in a bag and removed. The field was dry and clean. Hole closure device in the epigastrium. CO2 ex-sufflated. Skin closed with willian. Sterile dressing applied. The patient tolerated the procedure satisfactorily.
[2023-07-11] MEDS: D5W/0.45NS W/ 20mEq KCl 1000 ML 1,000 ML IV SCH (10:37)
[2023-07-11] MEDS: PROTONIX 40 MG IV IV SCH (10:38)
[2023-07-11 11:37] VITALS: BP 130/60; PULSE 54; TEMP 98.5; O2SAT 95
--- NOTE | 2023-07-11 14:48 | ECHO ---
DATE OF PROCEDURE: 07/10/2023 CLINICAL INFORMATION: History of supraventricular tachycardia. The M-mode 2D, and Doppler echocardiogram including color flow Doppler shows the left ventricle is normal in size. There is no thrombus present. The wall thickness is normal. The contractility is normal. The ejection fraction is calculated to be 59%. The right ventricle is grossly normal. The left atrium is normal in size. The interatrial septum is intact. The right atrium is normal. The aortic valve opens well. There is no aortic regurgitation. There is mitral valve leaflet thickening. There is trace amount of tricuspid regurgitation. The right ventricular systolic pressure is normal at 17 mm of Mercury. The pulmonic valve is not well visualized. The aortic root is normal. There is no pericardial effusion present. There are limited parasternal and apical windows. IMPRESSION: 1) NORMAL CONTRACTILITY OF THE LEFT VENTRICLE. 2) TRACE AMOUNT OF TRICUSPID REGURGITATION. 3) NORMAL RIGHT VENTRICULAR SYSTOLIC PRESSURE.
== END 2023-07-11 15:21 | disposition home or self-care (01) ==
LOC: ED 10:13 → MED SURG 13:46
PROVIDERS: ADMIT Internal Medicine; ATTEND Internal Medicine
DX: D72.829 Elevated white blood cell count, unspecified (principal); K80.00 Calculus of gallbladder with acute cholecystitis without obstruction; N17.9 Acute kidney failure, unspecified; R10.9 Unspecified abdominal pain; R79.89 Other specified abnormal findings of blood chemistry; K31.89 Other diseases of stomach and duodenum; F12.10 Cannabis abuse, uncomplicated; F15.10 Other stimulant abuse, uncomplicated; F17.210 Nicotine dependence, cigarettes, uncomplicated; K59.00 Constipation, unspecified; I47.10 Supraventricular tachycardia, unspecified; Z79.899 Other long term (current) drug therapy; Z20.828 Contact with and (suspected) exposure to other viral communicable diseases
CPT/HCPCS: 36415; 47562; 71260; 74176; 76705; 80053; 80307; 81001; 82077; 83605; 83735; 83880; 84443; 84484; 85025; 85379; 87040; 93005; 93041; 93306; 94640; 94760; 96360; 96374; 96375; 96376; 99285; 99291; Q3014; 93268; J0694; J2060; J2250; J2704; J3010; A9270-GY; G0378

== ENCOUNTER 2024-08-24 05:52 | Day surgery (SDC) | payer OTHER ==
[2024-08-24 06:36] VITALS: RESP 18
[2024-08-24] MEDS ORDERED: propofoL IV ONE ×2 (08:02→08:15)
[2024-08-24] MEDS ORDERED: Ephedrine Sulfate 50 MG/ML ONE (08:13)
[2024-08-24 09:06] VITALS: BP 113/86; PULSE 61; TEMP 97.7; O2SAT 97
--- NOTE | 2024-08-25 12:59 | OP ---
SURGERY DATE/TIME: 08/24/24 PREOPERATIVE DIAGNOSIS: Screening exam. POSTOPERATIVE DIAGNOSIS: Normal colon. PROCEDURE: Colonoscopy. SURGEON: Otilio Montiel MD ANESTHESIA: Medications were given by the anesthesia department. INDICATIONS: The patient is a 49-year-old white male patient presenting now for a screening colonoscopy. The patient was apprised of the risks of the procedure including risk of perforation, phlebitis, untoward reaction to medication, bleeding, and missed lesions. The patient verbalized his understanding and desire to have procedure performed. DESCRIPTION OF PROCEDURE AND FINDINGS: The patient was given medication by the anesthesia department. He had continuous pulse oximetry, ECG monitoring, and intermittent blood pressure monitoring during the examination. He was placed in the left lateral decubitus position. Digital rectal examination was performed and revealed normal anal sphincter tone, no masses, and a normal prostate. The flexible Olympus videocolonoscope was used to intubate the rectum. A view of the colon was developed sequentially to the cecum. Upon insertion and withdrawal, including retroflexed view in the rectum, no mucosal lesions were encountered. The scope was removed. The patient tolerated the procedure well and was sent back to outpatient recovery in good condition. The prep was noted to be fair.
== END 2024-08-24 09:14 | disposition home or self-care (01) ==
LOC: SDC 05:52
PROVIDERS: ATTEND Family Medicine
DX: Z12.11 Encounter for screening for malignant neoplasm of colon (principal)
CPT/HCPCS: J2704